=== PATIENT | female | born 1940 | race Caucasian/White ===

== ENCOUNTER → 2018-03-02 | Outpatient (CLI) | payer MEDICARE, MEDICAID ==
[2018-03-02 12:18] LABS: Urine Blood Negative /uL (Negative); Urine Specific Gravity 1.004 (1.001-1.035)
[2018-03-02 12:22] LABS: Basophils # (auto) 0.1 uL; Basophils % (auto) 0.8 % (0.0-2.0); Eosinophils # (auto) 0.8 uL; Eosinophils % (auto) 11.8 % (0.0-7.0); Hematocrit 33.2 % (36.0-46.0); Hemoglobin 10.5 g/dL (12.2-16.2); Lymphocytes # (auto) 2.2 uL; Lymphocytes % (auto) 31.4 % (10.0-50.0); Mean Corpuscular Hemoglobin 27.3 pg (28.0-32.0); Mean Corpuscular Hgb Conc. 31.5 g/dL (32.0-36.0); Mean Corpuscular Volume 86.5 fL (80.0-100.0); Monocytes # (auto) 0.4 uL; Monocytes % (auto) 6.1 % (0.0-12.0); Neutrophils # (auto) 3.4 uL; Neutrophils % (auto) 49.9 % (37.0-80.0); Nucleated Red Blood Cells % 0.1 %; Platelet Count (auto) 299 10^3/uL (140-450); Red Blood Cells 3.83 10^6/uL (4.0-5.20); Red Cell Distribution Width 16.8 % (11.8-14.3); White Blood Cell 6.9 10^3/uL (4.4-10.8)
[2018-03-02 12:50] LABS: Alanine Aminotransferase 21 U/L (13-56); Albumin 3.7 g/dL (3.4-5.0); Alkaline Phosphatase 148 U/L (45-117); Anion Gap 11 (5-15); Aspartate Aminotransferase 26 U/L (15-37); BUN/Creatinine Ratio 20.3; Bilirubin, Direct < 0.1 mg/dL (0-0.2); Bilirubin, Total 0.3 mg/dL (0.2-1.0); Blood Urea Nitrogen 26 mg/dL (7-18); Calcium 9.1 mg/dL (8.5-10.1); Carbon Dioxide 21 mmol/L (21-32); Chloride 109 mmol/L (98-107); Cholesterol 212 mg/dL (< 200); GFR African American 52 mL/min; GFR Non-African American 43 mL/min; Glucose 88 mg/dL (74-106); HDL Cholesterol 73 mg/dL (40-59); LDL Cholesterol 130 mg/dL (< 100); Potassium 3.9 mmol/L (3.5-5.1); Sodium 141 mmol/L (136-145); Total Protein 8.3 g/dL (6.4-8.2); Triglycerides 118 mg/dL (< 150)
== END | disposition home or self-care (01) ==
LOC: LAB 10:47
PROVIDERS: ATTEND Internal Medicine
DX: Z00.01 Encounter for general adult medical examination with abnormal findings (principal); E11.9 Type 2 diabetes mellitus without complications; E03.9 Hypothyroidism, unspecified; E55.9 Vitamin D deficiency, unspecified; K74.1 Hepatic sclerosis; N39.0 Urinary tract infection, site not specified
CPT/HCPCS: 36415; 80048; 80061; 80076; 81003; 82306; 83036; 84443; 85025; 87086

== ENCOUNTER → 2018-04-20 | Outpatient (CLI) | payer MEDICARE, MEDICAID ==
[2018-04-21 12:46] LABS: Basophils # (auto) 0.1 uL; Basophils % (auto) 0.9 % (0.0-2.0); Eosinophils # (auto) 0.8 uL; Eosinophils % (auto) 12.8 % (0.0-7.0); Hematocrit 37.6 % (36.0-46.0); Hemoglobin 12.2 g/dL (12.2-16.2); Lymphocytes # (auto) 1.9 uL; Lymphocytes % (auto) 30.7 % (10.0-50.0); Mean Corpuscular Hgb Conc. 32.5 g/dL (32.0-36.0); Mean Corpuscular Volume 89.2 fL (80.0-100.0); Monocytes # (auto) 0.3 uL; Monocytes % (auto) 4.5 % (0.0-12.0); Neutrophils # (auto) 3.2 uL; Neutrophils % (auto) 51.1 % (37.0-80.0); Nucleated Red Blood Cells % 0.1 %; Platelet Count (auto) 184 10^3/uL (140-450); Red Blood Cells 4.22 10^6/uL (4.0-5.20); Red Cell Distribution Width 18.9 % (11.8-14.3); White Blood Cell 6.3 10^3/uL (4.4-10.8)
[2018-04-21 17:28] LABS: Alkaline Phosphatase 129 U/L (45-117); Anion Gap 10 (5-15); Aspartate Aminotransferase 27 U/L (15-37); Blood Urea Nitrogen 25 mg/dL (7-18); Carbon Dioxide 22 mmol/L (21-32); Chloride 110 mmol/L (98-107); GFR African American 57 mL/min; GFR Non-African American 47 mL/min; Glucose 108 mg/dL (74-106); Potassium 3.9 mmol/L (3.5-5.1); Sodium 142 mmol/L (136-145)
[2018-04-21 17:29] LABS: Alanine Aminotransferase 25 U/L (13-56); Albumin 3.7 g/dL (3.4-5.0); Bilirubin, Total 0.2 mg/dL (0.2-1.0); Total Protein 8.3 g/dL (6.4-8.2)
== END | disposition home or self-care (01) ==
LOC: LAB 15:18
PROVIDERS: ATTEND Internal Medicine
DX: A23.9 Brucellosis, unspecified (principal); D64.9 Anemia, unspecified; I10 Essential (primary) hypertension
CPT/HCPCS: 36415; 80053; 85025

== ENCOUNTER → 2018-05-04 | Outpatient (CLI) | payer MEDICARE, MEDICAID ==
[2018-05-04 16:17] LABS: Urine Blood Negative /uL (Negative); Urine Specific Gravity 1.007 (1.001-1.035)
== END | disposition home or self-care (01) ==
LOC: LAB 12:01
PROVIDERS: ATTEND Internal Medicine
DX: N39.0 Urinary tract infection, site not specified (principal)
CPT/HCPCS: 81003; 87086

== ENCOUNTER 2018-05-21 12:53 | Emergency (ER) | payer MEDICARE, MEDICAID ==
[~2018-05-21] VITALS: Ht 154.9 cm; Wt 65.8 kg
[2018-05-21 14:10] VITALS: BP 170/82
[2018-05-21] MEDS ORDERED: KETOROLAC TROMETH 30 MG/ML 1ML VIAL IM ONE (16:00)
== END 2018-05-21 16:45 | disposition home or self-care (01) ==
LOC: ER 12:56
DX: N39.0 Urinary tract infection, site not specified (principal); M79.10 Myalgia, unspecified site; I10 Essential (primary) hypertension
CPT/HCPCS: 81002; 82962; 93005; 96372; 99283; J1885

== ENCOUNTER → 2018-06-29 | Outpatient (CLI) | payer MEDICARE, MEDICAID ==
[~2018-06-29] MED LIST: ALPR0.25 PO; ASPI-378 PO; ATOR20TA50 PO; DEXL60CA3 PO; ISOS5TAB PO; LISI-646 PO; MIRA25TA OR; NAPR375T27 PO; RANI-226 PO; TOPI100T68 PO
[2018-06-29 15:58] LABS: Urine Blood TRACE /uL (Negative); Urine Specific Gravity 1.009 (1.001-1.035)
== END | disposition home or self-care (01) ==
LOC: LABCORP 12:53
PROVIDERS: ATTEND Internal Medicine
DX: N39.0 Urinary tract infection, site not specified (principal)
CPT/HCPCS: 81003; 87086; 87088; 87186

== ENCOUNTER 2018-07-07 17:38 | Emergency (ER) | payer MEDICARE, MEDICAID ==
[~2018-07-07] VITALS: Ht 152.4 cm; Wt 52.2 kg
[2018-07-07] MEDS ORDERED: cloNIDine HCL 0.1 MG TAB ONE (18:15)
[2018-07-07] MEDS ORDERED: cloNIDine HCL 0.1 MG TAB PO ONE (18:15)
[2018-07-07 19:13] LABS: Urine Bacteria NONE SEEN /hpf (None Seen); Urine Blood Negative /uL (Negative); Urine Specific Gravity 1.005 (1.001-1.035); Urine WBC 305 /hpf (0 - 5); Urine WBC Clumps PRESENT /hpf (None Seen)
[2018-07-07 19:35] LABS: Basophils # (auto) 0 uL; Basophils % (auto) 0.6 % (0.0-2.0); Eosinophils # (auto) 0.5 uL; Hematocrit 35.7 % (36.0-46.0); Hemoglobin 11.5 g/dL (12.2-16.2); Lymphocytes # (auto) 2.2 uL; Lymphocytes % (auto) 38.4 % (10.0-50.0); Mean Corpuscular Hemoglobin 29.8 pg (28.0-32.0); Mean Corpuscular Hgb Conc. 32.1 g/dL (32.0-36.0); Mean Corpuscular Volume 92.7 fL (80.0-100.0); Monocytes # (auto) 0.4 uL; Monocytes % (auto) 6.2 % (0.0-12.0); Neutrophils # (auto) 2.6 uL; Neutrophils % (auto) 45.8 % (37.0-80.0); Platelet Count (auto) 222 10^3/uL (140-450); Red Blood Cells 3.85 10^6/uL (4.0-5.20); Red Cell Distribution Width 17.1 % (11.8-14.3); White Blood Cell 5.7 10^3/uL (4.4-10.8)
[2018-07-07 19:47] LABS: Albumin 3.6 g/dL (3.4-5.0); Anion Gap 6 (5-15); Blood Urea Nitrogen 20 mg/dL (7-18); Calcium 8.4 mg/dL (8.5-10.1); Carbon Dioxide 23 mmol/L (21-32); Chloride 107 mmol/L (98-107); Glucose 177 mg/dL (74-106); Potassium 3.7 mmol/L (3.5-5.1); Sodium 136 mmol/L (136-145)
[2018-07-07 19:53] LABS: Alanine Aminotransferase 18 U/L (13-56); Alkaline Phosphatase 116 U/L (45-117); Aspartate Aminotransferase 25 U/L (15-37); BUN/Creatinine Ratio 16.1; Bilirubin, Total 0.2 mg/dL (0.2-1.0); GFR African American 54 mL/min; GFR Non-African American 45 mL/min; Total Protein 7.6 g/dL (6.4-8.2)
[2018-07-07 20:13] LABS: INR 0.94 (0.9-1.15); Partial Thromboplastin Time 26.2 sec (23.78-33.04); Prothrombin Time 10.1 sec (9.27-12.13)
[2018-07-08 03:58] VITALS: BP 173/71
[2018-07-08] MEDS ORDERED: cefTRIAXone W LIDOCAINE 1 GM IM IM ONE (04:30)
[2018-07-08] MEDS ORDERED: cefTRIAXone SOD 1,000 MG VL ONE (05:21)
[2018-07-08] MEDS ORDERED: LEVOFLOXACIN 500 MG TAB ONE (05:24)
[2018-07-08] MEDS ORDERED: LEVOFLOXACIN 500 MG TAB PO ONE (05:30)
== END 2018-07-08 06:46 | disposition home or self-care (01) ==
LOC: ER 17:43
DX: I10 Essential (primary) hypertension (principal); N39.0 Urinary tract infection, site not specified; I25.10 Atherosclerotic heart disease of native coronary artery without angina pectoris; K21.9 Gastro-esophageal reflux disease without esophagitis; E78.5 Hyperlipidemia, unspecified; Z98.61 Coronary angioplasty status; Z79.82 Long term (current) use of aspirin; Z79.899 Other long term (current) drug therapy
CPT/HCPCS: 36415; 71046; 80053; 81001; 83735; 83880; 84443; 84484; 85025; 85379; 85610; 85730; 93005; 99284; J0696

== ENCOUNTER → 2018-09-21 | Outpatient (CLI) | payer MEDICARE, MEDICAID ==
[~2018-09-21] MED LIST changes: +KETOROLAC TROMETH 30 MG/ML 1ML VIAL IV ONE; +KETOROLAC TROMETH 60MG/2ML VIAL IM ONE; +MAGNESIUM SULFATE 1GM/100ML 100 ML IV ONE; +MVI in SODIUM CHLORIDE 0.9% 1,000 ML IVB ONE; +MVI in SODIUM CHLORIDE 0.9% 1,010 ML ONE; +ONDANSETRON HCL 4 MG/2 ML VIAL IV ONE; +ONDANSETRON HCL 4 MG/2 ML VIAL ONE; +cefTRIAXone 1GM/50ML D5W 50 ML IV ONE; +cefTRIAXone SOD 1,000 MG VL IM ONE
[2018-09-21 15:30] VITALS: BP 141/68
--- NOTE | 2018-09-21 15:30 | NUR ---
PRESENTED FROM DR LOPEZ WITH FATIGUE AND WEAKNESS, NAUSEA INTERFERING WITH ABILITY TO EAT. CLINIC PROVIDER WITH ORDERS RECEIVED. IV insertion IV access obtained, via clean sterile technique by inserting 22 gauge catheter at after attempt(s). IV secured properly. No trauma to site. Patient tolerated procedure well. ADMINISTERED MEDICATIONS PER ORDER AND TOLERATED WELL. REPORTED PAIN 8/10 TO BILATERAL LEGS WITH TORADOL 15 MG IVP ADMINISTERED WITH RELIEF DOWN TO 0/10. SON IN ATTENDANCE. VITALS AT 1245 BP 127/67 HR 63 Discharge Instructions See e-MAR for any mediations given with this visit. Patient education given on disease process. Patient verbalized understanding. Previous labs reviewed. Patient discharged in stable condition with after care instructions and follow up appointment FOR 09/22/18 AT 0900 MEDICATION ADMINISTRATION ROCEPHIN 1 GRAM IVPB AT 1150/STOP AT 1205 ZOFRAN 4 MG IVP AT 1205 0.9 NS 1000 ML WITH MVI AND MAGNESIUM 1 GRAM START AT 1210/STOP AT 1520 TORADOL 15 MG IVP AT 1250
== END | disposition home or self-care (01) ==
LOC: CHF HDHVI 11:37
PROVIDERS: ATTEND Internal Medicine Cardiovascular Disease
DX: E86.0 Dehydration (principal); R53.83 Other fatigue; J06.9 Acute upper respiratory infection, unspecified; I10 Essential (primary) hypertension; Z87.440 Personal history of urinary (tract) infections
CPT/HCPCS: 96365; 96366; 96368; 96375; G0463; J0696; J1885; J2405; J3411; J3475; 96367

== ENCOUNTER → 2018-09-22 | Outpatient (CLI) | payer MEDICARE, MEDICAID ==
[~2018-09-22] MED LIST changes: -KETOROLAC TROMETH 30 MG/ML 1ML VIAL IV ONE; -KETOROLAC TROMETH 60MG/2ML VIAL IM ONE; -MAGNESIUM SULFATE 1GM/100ML 100 ML IV ONE; +MULTIVITAMIN IV ONE; -MVI in SODIUM CHLORIDE 0.9% 1,000 ML IVB ONE; -ONDANSETRON HCL 4 MG/2 ML VIAL IV ONE; -ONDANSETRON HCL 4 MG/2 ML VIAL ONE; +SODIUM CHLORIDE IV ONE; -cefTRIAXone SOD 1,000 MG VL IM ONE; +cefTRIAXone SOD 1,000 MG VL ONE
[2018-09-22 10:30] VITALS: BP 130/82
--- NOTE | 2018-09-22 10:30 | NUR ---
IV insertion IV access obtained, via clean sterile technique by inserting 22 gauge catheter at LAC after 1 attempt(s). IV secured properly. No trauma to site. Patient tolerated procedure well.
--- NOTE | 2018-09-22 12:00 | NUR ---
IV INFUSING WITHOUT INCIDENT. PT AWAKE AND ALERT AND READING A MAGAZINE. REPORTS NOT FEELING BETTER BUT OVERALL APPEARANCE IS MORE ALERT AND COLOR PINK, SKIN WARM AND DRY. PT OFFERED ENSURE AND DRANK SHAKE .
[2018-09-22 12:21] LABS: Basophils # (auto) 0 uL; Basophils % (auto) 0.4 % (0.0-2.0); Eosinophils # (auto) 0.5 uL; Eosinophils % (auto) 10.4 % (0.0-7.0); Hematocrit 38.2 % (36.0-46.0); Hemoglobin 12.4 g/dL (12.2-16.2); Lymphocytes # (auto) 2.5 uL; Lymphocytes % (auto) 53.1 % (10.0-50.0); Mean Corpuscular Hemoglobin 30.7 pg (28.0-32.0); Mean Corpuscular Hgb Conc. 32.5 g/dL (32.0-36.0); Mean Corpuscular Volume 94.3 fL (80.0-100.0); Monocytes # (auto) 0.4 uL; Monocytes % (auto) 8.3 % (0.0-12.0); Neutrophils # (auto) 1.3 uL; Neutrophils % (auto) 27.8 % (37.0-80.0); Nucleated Red Blood Cells % 0.2 %; Platelet Count (auto) 159 10^3/uL (140-450); Red Blood Cells 4.05 10^6/uL (4.0-5.20); Red Cell Distribution Width 15.5 % (11.8-14.3); White Blood Cell 4.8 10^3/uL (4.4-10.8)
[2018-09-22 12:27] LABS: Potassium 3.3 mmol/L (3.5-5.1)
[2018-09-22 12:37] LABS: Albumin 3.3 g/dL (3.4-5.0); BUN/Creatinine Ratio 18.1; Bilirubin, Total 0.2 mg/dL (0.2-1.0); Calcium 8.6 mg/dL (8.5-10.1); Magnesium 2.4 mg/dL (1.6-2.6); Total Protein 7.6 g/dL (6.4-8.2)
--- NOTE | 2018-09-22 13:00 | NUR ---
CONTINUES TO SIT IN RECLINER AND VS WNL. SEE FREQUENT VS. IV FLUIDS ONGOING TO LEFT AC.
[2018-09-22 14:15] VITALS: BP 165/79
--- NOTE | 2018-09-22 14:15 | NUR ---
IV SITE DCD. LEFT AC SITE BENIGN POST ROVAL. PT ASSISTED UP TO RESTROOM TO VOID. GAIT STEADY WITH ONE PERSON STAND BY. AFFECT FLAT BUT COOPERATIVE. Discharge Instructions See e-MAR for any mediations given with this visit. Patient education given on disease process. Patient verbalized understanding. Previous labs reviewed. Patient discharged in stable condition with after care instructions and follow up appointment FOR 09/25/18
--- NOTE | 2018-11-29 12:19 | NUR ---
LATE ENTRY FOR 09/22/18 MVI IN NS [id number] LIA [id number]
== END | disposition home or self-care (01) ==
LOC: CHF HDHVI 09:23
PROVIDERS: ATTEND Internal Medicine Cardiovascular Disease
DX: E83.40 Disorders of magnesium metabolism, unspecified (principal); D64.9 Anemia, unspecified; E86.0 Dehydration; J20.9 Acute bronchitis, unspecified; I10 Essential (primary) hypertension
CPT/HCPCS: 36415; 80053; 82306; 83735; 85025; 96365; 96366; 96368; G0463; J0696; J3411; J3475; 96367

== ENCOUNTER → 2018-11-06 | Outpatient (CLI) | payer MEDICARE, MEDICAID ==
[~2018-11-06] MED LIST changes: -MULTIVITAMIN IV ONE; -MVI in SODIUM CHLORIDE 0.9% 1,010 ML ONE; -SODIUM CHLORIDE IV ONE; -cefTRIAXone 1GM/50ML D5W 50 ML IV ONE; -cefTRIAXone SOD 1,000 MG VL ONE
[2018-11-06 12:15] LABS: Urine Blood Negative /uL (Negative); Urine Specific Gravity 1.004 (1.001-1.035)
[2018-11-06 12:26] LABS: Potassium 3.6 mmol/L (3.5-5.1)
[2018-11-06 12:32] LABS: Calcium 9.4 mg/dL (8.5-10.1)
[2018-11-06 12:34] LABS: Basophils # (auto) 0 uL; Basophils % (auto) 0.7 % (0.0-2.0); Eosinophils # (auto) 0.7 uL; Eosinophils % (auto) 12.7 % (0.0-7.0); Hematocrit 39.6 % (36.0-46.0); Hemoglobin 12.7 g/dL (12.2-16.2); Lymphocytes # (auto) 2.4 uL; Lymphocytes % (auto) 41.6 % (10.0-50.0); Mean Corpuscular Hemoglobin 30.6 pg (28.0-32.0); Mean Corpuscular Volume 95.6 fL (80.0-100.0); Monocytes # (auto) 0.4 uL; Monocytes % (auto) 7.5 % (0.0-12.0); Neutrophils # (auto) 2.2 uL; Neutrophils % (auto) 37.5 % (37.0-80.0); Nucleated Red Blood Cells % 0.1 %; Platelet Count (auto) 196 10^3/uL (140-450); Red Blood Cells 4.14 10^6/uL (4.0-5.20); Red Cell Distribution Width 16.4 % (11.8-14.3); White Blood Cell 5.7 10^3/uL (4.4-10.8)
[2018-11-06 12:35] LABS: BUN/Creatinine Ratio 14.4
[2018-11-06 12:41] LABS: INR 0.9 (0.9-1.15); Partial Thromboplastin Time 25.7 sec (23.78-33.04); Prothrombin Time 9.7 sec (9.27-12.13)
== END | disposition home or self-care (01) ==
LOC: LAB 10:22
PROVIDERS: ATTEND Internal Medicine
DX: Z01.812 Encounter for preprocedural laboratory examination (principal); D64.9 Anemia, unspecified; R79.1 Abnormal coagulation profile; I10 Essential (primary) hypertension; N39.0 Urinary tract infection, site not specified
CPT/HCPCS: 36415; 80048; 81003; 85025; 85610; 85730

== ENCOUNTER → 2018-11-28 | Outpatient (CLI) | payer MEDICARE, MEDICAID ==
[2018-11-28 16:17] LABS: Urine Blood Negative /uL (Negative)
== END | disposition home or self-care (01) ==
LOC: LAB 12:35
PROVIDERS: ATTEND Internal Medicine Cardiovascular Disease
DX: D72.829 Elevated white blood cell count, unspecified (principal)
CPT/HCPCS: 81003

== ENCOUNTER → 2018-12-08 | Outpatient (CLI) | payer MEDICARE, MEDICAID ==
[2018-12-08 11:32] LABS: Urine Blood Negative /uL (Negative); Urine Specific Gravity 1.013 (1.001-1.035)
== END | disposition home or self-care (01) ==
LOC: LAB 10:14
PROVIDERS: ATTEND Internal Medicine
DX: N39.0 Urinary tract infection, site not specified (principal)
CPT/HCPCS: 81003

== ENCOUNTER → 2018-12-15 | Outpatient (CLI) | payer MEDICARE, MEDICAID ==
[2018-12-15 15:50] LABS: Urine Blood Negative /uL (Negative); Urine Specific Gravity 1.006 (1.001-1.035)
== END | disposition home or self-care (01) ==
LOC: LAB 11:27
PROVIDERS: ATTEND Internal Medicine Cardiovascular Disease
DX: N39.0 Urinary tract infection, site not specified (principal)
CPT/HCPCS: 81003; 87086

== ENCOUNTER → 2019-02-16 | Outpatient (CLI) | payer MEDICARE, MEDICAID ==
[2019-02-16 16:07] LABS: BUN/Creatinine Ratio 19.7; Calcium 9.3 mg/dL (8.5-10.1); Magnesium 2.5 mg/dL (1.6-2.6); Potassium 4.2 mmol/L (3.5-5.1)
== END | disposition home or self-care (01) ==
LOC: LAB 11:33
PROVIDERS: ATTEND Internal Medicine Cardiovascular Disease
DX: E03.9 Hypothyroidism, unspecified (principal); E83.40 Disorders of magnesium metabolism, unspecified; I10 Essential (primary) hypertension
CPT/HCPCS: 36415; 80048; 83735; 84439; 84443

== ENCOUNTER → 2019-08-23 | Outpatient (CLI) | payer MEDICARE, MEDICAID ==
[2019-08-23 15:59] LABS: Basophils # (auto) 0 uL; Basophils % (auto) 0.5 % (0.0-2.0); Eosinophils # (auto) 0.5 uL; Eosinophils % (auto) 6.9 % (0.0-7.0); Hematocrit 38.3 % (36.0-46.0); Hemoglobin 12.5 g/dL (12.2-16.2); Lymphocytes # (auto) 2.5 uL; Lymphocytes % (auto) 33.8 % (10.0-50.0); Mean Corpuscular Hemoglobin 31.1 pg (28.0-32.0); Mean Corpuscular Hgb Conc. 32.6 g/dL (32.0-36.0); Mean Corpuscular Volume 95.6 fL (80.0-100.0); Monocytes # (auto) 0.5 uL; Monocytes % (auto) 7.1 % (0.0-12.0); Neutrophils # (auto) 3.8 uL; Neutrophils % (auto) 51.7 % (37.0-80.0); Nucleated Red Blood Cells % 0.1 %; Platelet Count (auto) 198 10^3/uL (140-450); Red Blood Cells 4.01 10^6/uL (4.0-5.20); Red Cell Distribution Width 14.5 % (11.8-14.3); Urine Blood Negative /uL (Negative); Urine Specific Gravity 1.014 (1.001-1.035); White Blood Cell 7.3 10^3/uL (4.4-10.8)
[2019-08-23 16:10] LABS: Albumin 3.8 g/dL (3.4-5.0); Calcium 9.4 mg/dL (8.5-10.1); Potassium 3.6 mmol/L (3.5-5.1)
[2019-08-23 16:12] LABS: BUN/Creatinine Ratio 15.5; Bilirubin, Total 0.4 mg/dL (0.2-1.0); Total Protein 8.2 g/dL (6.4-8.2)
== END | disposition home or self-care (01) ==
LOC: LAB 12:50
PROVIDERS: ATTEND Internal Medicine
DX: D64.9 Anemia, unspecified (principal); N39.0 Urinary tract infection, site not specified
CPT/HCPCS: 36415; 80053; 81003; 85025; 87086

== ENCOUNTER → 2019-09-07 | Outpatient (CLI) | payer MEDICARE, MEDICAID ==
[~2019-09-07] MED LIST changes: -ALPR0.25 PO; -ASPI-378 PO; -DEXL60CA3 PO; +DICL-176 PO; +DICL50TA4 PO; +ESOM20CA PO; +GABA300C10 PO; -ISOS5TAB PO; -LISI-646 PO; +LISI40TA PO; +LUBI24CA6 PO; +MELO1TAB73 PO; +METO-169 PO; -MIRA25TA OR; -NAPR375T27 PO; +OMEP20TA PO; -RANI-226 PO
== END | disposition home or self-care (01) ==
LOC: Rad HDHVI 10:26
PROVIDERS: ATTEND Internal Medicine
DX: I70.0 Atherosclerosis of aorta (principal); J98.11 Atelectasis; R07.81 Pleurodynia; R42 Dizziness and giddiness; R11.0 Nausea
CPT/HCPCS: 71101

== ENCOUNTER → 2019-09-20 | Outpatient (CLI) | payer MEDICARE, MEDICAID ==
[~2019-09-20] MED LIST changes: +cefTRIAXone 1GM/50ML D5W 50 ML IV ONE
[2019-09-20 11:15] VITALS: BP 150/90
--- NOTE | 2019-09-20 11:15 | NUR ---
CHF PT WAS ESCORTED TO THE CHF CLINIC FROM MD OFFICE WITH ORDERS FOR IV ANTIBIOTIC FOR UTI. PT ARRIVED WITH IV IN PLACE AT THE [facility] PT STATES IT WAS INSERTED AT URGENT CARE 1 DAY PRIOR TO VISIT. IV SITE BENIGN AND FLUSHED EASILY. A/OX4 VSS.
[2019-09-20 12:10] VITALS: BP 160/80
--- NOTE | 2019-09-20 12:10 | NUR ---
Discharge Instructions See e-MAR for any mediations given with this visit. Patient education given on disease process. Patient verbalized understanding. Patient discharged in stable condition with after care instructions and follow up appointment. WILL RETURN TOMORROW FOR MD VISIT AND CT WITH CONTRAST. SWAB CAP WAS PLACED ON IV PORT AND IV WAS SECURE WITH COBAN. NOTE LIA [id number] ADMIN BY FELISA BROWNING Addendum: 09/20/19 at 1341 by FELISA LAWSON RN RN CT PT ADVISED TO KEEP IV SITE DRY. PT VERBALIZED UNDERSTANDING
== END | disposition home or self-care (01) ==
LOC: LAB 10:58
PROVIDERS: ATTEND Internal Medicine
DX: N39.0 Urinary tract infection, site not specified (principal); R94.4 Abnormal results of kidney function studies; I25.10 Atherosclerotic heart disease of native coronary artery without angina pectoris; F41.9 Anxiety disorder, unspecified; J44.9 Chronic obstructive pulmonary disease, unspecified; E78.5 Hyperlipidemia, unspecified; K21.9 Gastro-esophageal reflux disease without esophagitis; I10 Essential (primary) hypertension; Z79.82 Long term (current) use of aspirin
CPT/HCPCS: 36415; 82565; 96365; G0463; J0696

== ENCOUNTER → 2019-09-21 | Outpatient (CLI) | payer MEDICARE, MEDICAID ==
[~2019-09-21] MED LIST changes: +IOHEXOL 350 MG/ML 100ML IJ ONE; +READI-CAT 2 (BARIUM SULF)(VANILLA SMOOTHIE) 450ML ONE
[2019-09-21 09:20] VITALS: BP 179/100
--- NOTE | 2019-09-21 09:20 | NUR ---
CHF PT AT THE [facility] FOR TX AND CT ABDOMEN PELVIS WITH IV AND ORAL CONTRAST. A/O X 4 C/O ABDOMINAL PAIN MD ORTIZ AWARE LIDODERM PATCH SUGGESTED FOR PT TO HIDE SPREADER. SON VERBALIZED UNDERSTANDING Addendum: 09/21/19 at 1506 by HILLARY MCKINNEY RN CA PT PRESENTED WITH IV FROM THE VISIT TO URGENT CARE, IV PATENT SITE BENIGN
--- NOTE | 2019-09-21 11:00 | NUR ---
CT PT ASSISTED TO AND FROM CT USING WALKER 0 DISTRESS TOLERATED PROCEDURE WELL.
[2019-09-21 11:18] VITALS: BP 184/101
--- NOTE | 2019-09-21 11:18 | NUR ---
Discharge Instructions See e-MAR for any mediations given with this visit. Patient education given on disease process. Patient verbalized understanding. Previous labs reviewed. Patient discharged in stable condition with after care instructions and follow up appointment. MEDICATIONS ROCEPHIN IV [id number]
== END | disposition home or self-care (01) ==
LOC: Rad HDHVI 09:10
PROVIDERS: ATTEND Internal Medicine
DX: K57.30 Diverticulosis of large intestine without perforation or abscess without bleeding (principal); R10.9 Unspecified abdominal pain; I25.10 Atherosclerotic heart disease of native coronary artery without angina pectoris; K44.9 Diaphragmatic hernia without obstruction or gangrene; F41.9 Anxiety disorder, unspecified; J44.9 Chronic obstructive pulmonary disease, unspecified; I10 Essential (primary) hypertension; K21.9 Gastro-esophageal reflux disease without esophagitis; E78.5 Hyperlipidemia, unspecified; Z79.82 Long term (current) use of aspirin
CPT/HCPCS: 74178; 96365; G0463; J0696; Q9967

== ENCOUNTER → 2019-09-25 | Outpatient (CLI) | payer MEDICARE, MEDICAID ==
[~2019-09-25] MED LIST changes: -IOHEXOL 350 MG/ML 100ML IJ ONE; -READI-CAT 2 (BARIUM SULF)(VANILLA SMOOTHIE) 450ML ONE; -cefTRIAXone 1GM/50ML D5W 50 ML IV ONE
[2019-09-25 11:50] LABS: Urine Blood Negative /uL (Negative); Urine Specific Gravity 1.008 (1.001-1.035)
== END | disposition home or self-care (01) ==
LOC: LAB 10:41
PROVIDERS: ATTEND Internal Medicine
DX: N39.0 Urinary tract infection, site not specified (principal)
CPT/HCPCS: 81003

== ENCOUNTER → 2019-10-17 | Outpatient (CLI) | payer MEDICARE, MEDICAID ==
[~2019-10-17] VITALS: Ht 157.5 cm; Wt 52.2 kg
[~2019-10-17] MED LIST changes: +ADENOSINE 44 MG in GIVE UN-DILUTED 0 ML IV ONE; +ADENOSINE 90 MG/30 ML INJ IV ONE; +ALPR0.254 PO; +ASPI81CH59 PO; +BUSP5TAB51 PO; +CIPR500T4 PO; +CLON0.1T PO; -LISI40TA PO; +LISI40TA11 PO; +METO10TA3 PO; +ONDA-144 PO; +SUCR1TAB22 PO; +TRIA75TA55 PO
== END | disposition home or self-care (01) ==
LOC: Rad HDHVI 13:15
PROVIDERS: ATTEND Internal Medicine Cardiovascular Disease
DX: I10 Essential (primary) hypertension (principal); E78.00 Pure hypercholesterolemia, unspecified; R07.9 Chest pain, unspecified; R00.2 Palpitations
CPT/HCPCS: 78452; 93005; 93306; 96374; 96375; A9500; J0153

== ENCOUNTER → 2019-12-25 | Outpatient (CLI) | payer MEDICARE, MEDICAID ==
[~2019-12-25] MED LIST changes: -ADENOSINE 44 MG in GIVE UN-DILUTED 0 ML IV ONE; -ADENOSINE 90 MG/30 ML INJ IV ONE; -ALPR0.254 PO; -ASPI81CH59 PO; -BUSP5TAB51 PO; -CIPR500T4 PO; -CLON0.1T PO; +LISI40TA PO; -LISI40TA11 PO; -METO10TA3 PO; -ONDA-144 PO; +ONDANSETRON HCL 4 MG/2 ML VIAL IV ONE; +ONDANSETRON HCL 4 MG/2 ML VIAL ONE; +SODIUM CHLORIDE 0.9% 500 ML IV ONE; -SUCR1TAB22 PO; -TRIA75TA55 PO
[2019-12-25 11:45] VITALS: BP 128/52
[2019-12-25 13:58] VITALS: BP 140/58
== END | disposition home or self-care (01) ==
LOC: CHF HDHVI 11:45
PROVIDERS: ATTEND Internal Medicine
DX: E86.0 Dehydration (principal); R11.2 Nausea with vomiting, unspecified; I10 Essential (primary) hypertension; E78.00 Pure hypercholesterolemia, unspecified
CPT/HCPCS: 96361; 96374; G0463; J2405; J7040; 96367

== ENCOUNTER 2020-01-09 13:18 | Inpatient (IN) | payer MEDICARE, MEDICAID ==
[~2020-01-09] VITALS: Ht 152.4 cm; Wt 56.1 kg
[~2020-01-09 13:18] MED LIST changes: -LISI40TA PO; +LISI40TA11 PO; -ONDANSETRON HCL 4 MG/2 ML VIAL IV ONE; -ONDANSETRON HCL 4 MG/2 ML VIAL ONE; -SODIUM CHLORIDE 0.9% 500 ML IV ONE
[2020-01-09 14:07] LABS: Basophils # (auto) 0 10 ^3/uL (0-0.2); Basophils % (auto) 0.7 % (0.0-2.0); Eosinophils # (auto) 0.1 10 ^3/uL (0-0.8); Eosinophils % (auto) 1.5 % (0.0-7.0); Lymphocytes % (auto) 30.7 % (10.0-50.0); Mean Corpuscular Hgb Conc. 33.2 g/dL (32.0-36.0); Mean Corpuscular Volume 90.4 fL (80.0-100.0); Monocytes # (auto) 0.5 10 ^3/uL (0-1.3); Monocytes % (auto) 7.4 % (0.0-12.0); Neutrophils % (auto) 59.7 % (37.0-80.0); Platelet Count (auto) 232 10^3/uL (140-450); Red Blood Cells 3.99 10^6/uL (4.0-5.20); Red Cell Distribution Width 14.7 % (11.8-14.3); White Blood Cell 6.6 10^3/uL (4.4-10.8)
[2020-01-09 14:27] LABS: Albumin 3.6 g/dL (3.4-5.0); Magnesium 2.2 mg/dL (1.6-2.6)
[2020-01-09 14:30] LABS: BUN/Creatinine Ratio 11.8; Bilirubin, Total 0.4 mg/dL (0.2-1.0); Total Protein 7.5 g/dL (6.4-8.2)
[2020-01-09 15:14] LABS: Urine Bacteria FEW /hpf (None Seen); Urine Blood Negative /uL (Negative); Urine Hyaline Cast FEW /lpf (0 - 2); Urine Specific Gravity 1.009 (1.001-1.035); Urine WBC 245 /hpf (0 - 5)
[2020-01-09] MEDS ORDERED: SODIUM CHLORIDE 0.9% 1,000 ML IVB ONE (15:49)
[2020-01-09] MEDS ORDERED: ONDANSETRON HCL 4 MG/2 ML VIAL IV ONE (16:00)
[2020-01-09 16:19] LABS: INR 1.02 (0.9-1.15); Partial Thromboplastin Time 27.3 sec (23.64-32.05)
[2020-01-09] MEDS ORDERED: POTASSIUM EFFERVESENT TAB 25 MEQ PO ONE (19:30)
[2020-01-09] MEDS ORDERED: cefTRIAXone 1GM/50ML D5W 50 ML IV ONE (19:30)
[2020-01-09 20:10] LABS: Urine Bacteria FEW /hpf (None Seen); Urine Blood Negative /uL (Negative); Urine Specific Gravity 1.005 (1.001-1.035); Urine WBC 33 /hpf (0 - 5)
[2020-01-09] MEDS ORDERED: ACETAMINOPHEN 325 MG TAB PO ONE (20:15)
[2020-01-09 21:29] LABS: BUN/Creatinine Ratio 10.5; Calcium 8.2 mg/dL (8.5-10.1); Potassium 3.1 mmol/L (3.5-5.1)
[2020-01-09] MEDS ORDERED: SODIUM CHL 3% 250 ML IV ONE (22:15)
[2020-01-09] MEDS ORDERED: NITROGLYCERIN 0.4 MG SL TAB SL PRN (22:15)
[2020-01-09] MEDS ORDERED: MORPHINE SULF INJ 2 MG/ML SYRINGE 1ML IV PRN (22:15)
[2020-01-09] MEDS ORDERED: PANTOPRAZOLE 40 MG TAB PO ONE (22:30)
[2020-01-09] MEDS: POTASSIUM CHL 20MEQ/100ML 100 ML IV SCH (22:49)
[2020-01-09] MEDS ORDERED: GABAPENTIN 300 MG CAP PO ONE (23:00)
--- NOTE | 2020-01-09 23:30 | NUR ---
Telemetry admit from ER VERNA JUAREZ admitted to Telemetry unit. DID NOT RECEIVE SBAR FROM ER NURSE. Patient oriented to Jacob sanderson RN, [facility] unit, 278 room, B bed, and unit policies regarding patient care and visiting hours. Patient now on continuous telemetry monitoring, tele box # 59 and telemetry reading on arrival to unit is SINUS RHYTHM to SINUS BRADYCARDIA. Patient placed on bedside oxygen, weighed by bedscale and encouraged to call if they need something. All questions and concerns addressed, patient verbalized understanding. Note:
[2020-01-10] VITALS (8 sets, daily range): BP systolic 122–180; BP diastolic 66–90
[2020-01-10] MEDS ORDERED: ASPI81CH59 PO (00:04)
[2020-01-10] MEDS ORDERED: CLON0.1T PO (00:04)
[2020-01-10] MEDS ORDERED: ALPR0.254 PO (00:04)
[2020-01-10] MEDS ORDERED: ONDA-144 PO (00:04)
--- NOTE | 2020-01-10 00:40 | NUR ---
Communicated with Dr Jerome and notified him of patient requesting pain medication for arthritis. Dr Jerome provided new order: Hazard 10/325 mg po prn QID. read back and confirmed order. will carry out .
[2020-01-10] MEDS: POTASSIUM CHL 20MEQ/100ML 100 ML IV SCH ×2 (00:45→02:45)
[2020-01-10] MEDS: HYDROcodone-ACET 10/325MG TAB PO PRN ×2 (00:51→09:18)
[2020-01-10 07:17] LABS: Potassium 4.1 mmol/L (3.5-5.1)
[2020-01-10 07:28] LABS: Calcium 8.4 mg/dL (8.5-10.1)
--- NOTE | 2020-01-10 07:30 | NUR ---
OPENING SHIFT NOTE ASSUMED CARE OF PATIENT. PT AWAKE AND ALERT. RESPIRATIONS NORMAL AND NONLABORED. NO S/S DISTRESS. BED IN LOWEST POSITION WITH CALL LIGHT IN REACH. EDUCATED PT TO CALL FOR ASSISTANCE IF NEEDED. PT VERBALIZED UNDERSTANDING. Signed: 01/10/20 at 926 by Paola BLUE <Co-Signature Required> Co-Signed: 01/10/20 at 926 by Lisa Bower RN
[2020-01-10] MEDS: ATORVASTATIN 20 MG TAB PO SCH (09:15)
[2020-01-10] MEDS: PANTOPRAZOLE 40 MG TAB PO SCH (09:16)
[2020-01-10] MEDS: TOPIRAMATE 100 MG TAB PO SCH (09:16)
[2020-01-10] MEDS: GABAPENTIN 300 MG CAP PO SCH ×2 (09:16→22:20)
[2020-01-10] MEDS: LISINOPRIL 20 MG TAB PO SCH (09:17)
[2020-01-10] MEDS: Meloxicam 7.5 MG TAB PO SCH ×2 (09:22→22:00)
--- NOTE | 2020-01-10 09:29 | NUR ---
RE: orders Contacted Dr. Jerome to notify of UA results with patient's c/o urgency & oliguria and patient's c/o nausea. MD verbalized understanding. Orders received and read back to verify.
[2020-01-10] MEDS: levoFLOXacin 500MG 100 ML IV SCH ×2 (11:16→11:20)
[2020-01-10] MEDS: ONDANSETRON HCL 4 MG/2 ML VIAL IV PRN ×3 (11:17→22:20)
--- NOTE | 2020-01-10 12:33 | NUR ---
IV removed/attempted new IV IV to the RFA removed with aseptic technique, catheter intact. Dressing applied. Patient tolerated well, no trauma to site. Paola, student RN, and this RN attempted to obtain IV access. All attempts failed. Patient requested to not have IV access and have antibiotic changed to PO. Message provided to Dr. Jerome.
--- NOTE | 2020-01-10 13:43 | NUR ---
Spoke with Dr. Jerome RE: POC Notified MD of patient's recent lab results. MD verbalized understanding. Orders received and read back to verify.
--- NOTE | 2020-01-10 13:53 | NUR ---
at bedside - Dr. Jerome
--- NOTE | 2020-01-10 14:00 | NUR ---
RE: Elevated BP LUIS Ivey, notified this RN and Paola, nursing home manager, of elevated BP. BP reassessed by RN. Documented BP at 1400 by Loni was original BP that RN was notified of. Documented BP by Paola was reassessment BP.
[2020-01-10] MEDS ORDERED: levoFLOXacin 500 MG TAB PO ONE (15:00)
--- NOTE | 2020-01-10 15:58 | NUR ---
C/O N/V Patient has c/o N/V. Bed linens changed d/t emesis. Patient cleansed and repositioned for comfort. Patient requesting discharge to be held due to N/V. Message left for Dr. Jerome to inform MD. Addendum: 01/10/20 at 1603 by Lisa Bower RN MD verbalized understanding. Discharge to be cancelled per MD order.
--- NOTE | 2020-01-10 16:59 | NUR ---
IV started 22g IV started to the right upper arm with aseptic technique by mamta Burt RN. IV secured and IV education provided to the patient. Patient verbalized understanding. Bed returned to lowest locked position with call light within reach.
--- NOTE | 2020-01-10 19:20 | NUR ---
Care endorsed to NALLELY Kearney. Patient resting in bed with even and unlabored respirations, no distress noted. Fall precautions in place with call light within reach; bed alarm on for safety.
--- NOTE | 2020-01-10 19:25 | NUR ---
Opening Shift Note Assumed care of patient, awake and alert. No S/S of distress/SOB or pain. Instructed on POC and to call for assist PRN, will continue to monitor for changes Q1hr and PRN. Bedside commode at bedside. Safety precautions maintained bed is in lowest position and locked, bed rails x2, bed alarm on. Call light and bedside table are within reach.
[2020-01-11 05:03] VITALS: BP 128/75
--- NOTE | 2020-01-11 07:22 | NUR ---
End of Shift Note Endorsed care to dayshift RN. At this time patient has no s/s of distress or SOB, no complaints. Patient responsive to name and touch.
--- NOTE | 2020-01-11 08:00 | NUR ---
Morning note Patient resting in bed with even and unlabored respirations, no distress noted. Instructed patient on POC, fall precautions and to call for assistance as needed. Patient verbalized understanding. Fall precautions in place with call light within reach; bed alarm on for safety.
[2020-01-11 09:00] VITALS: BP 155/83
[2020-01-11] MEDS: ONDANSETRON HCL 4 MG/2 ML VIAL IV PRN (09:06)
[2020-01-11] MEDS: ATORVASTATIN 20 MG TAB PO SCH (09:09)
[2020-01-11] MEDS: GABAPENTIN 300 MG CAP PO SCH (09:09)
[2020-01-11] MEDS: PANTOPRAZOLE 40 MG TAB PO SCH (09:09)
[2020-01-11] MEDS: HYDROcodone-ACET 10/325MG TAB PO PRN (09:09)
[2020-01-11] MEDS: TOPIRAMATE 100 MG TAB PO SCH (09:10)
[2020-01-11] MEDS: Meloxicam 7.5 MG TAB PO SCH (09:10)
[2020-01-11] MEDS: LISINOPRIL 20 MG TAB PO SCH (09:11)
--- NOTE | 2020-01-11 09:30 | NUR ---
Bed alarm alarming Patient found in the restroom. Patient stated "I had to go poopie!" Fall prevention education provided to the patient and instructed patient to only ambulate with a staff member for standby assistance. Patient verbalized understanding. Patient returned to bed with no complications; standby assistance provided by staff member. Bed alarm on for safety; call light within reach.
[2020-01-11] MEDS ORDERED: levoFLOXacin 500 MG TAB PO SCH (10:00)
[2020-01-11] MEDS ORDERED: levoFLOXacin 250 MG TAB PO SCH (10:00)
--- NOTE | 2020-01-11 10:26 | NUR ---
Patient ambulated with physical therapist ROBINA Lambert, assisted patient with ambulation around nursing unit. FWW used as assistive device. Patient returned to bed with no complications. Bed alarm on for safety.
[2020-01-11 13:00] VITALS: BP 146/56
--- NOTE | 2020-01-11 13:13 | NUR ---
Patient resting in bed with even and unlabored respirations, no distress noted. Fall precautions in place with call light within reach; bed alarm on for safety.
--- NOTE | 2020-01-11 15:36 | NUR ---
Prescription called into patient's preferred pharmacy per MD order.
--- NOTE | 2020-01-11 17:11 | NUR ---
Discharge Discharge education and paperwork provided to the patient per MD order. patient verbalized understanding. IV removed with clean technique, catheter intact. Dressing applied, patient tolerated well. Telemonitor removed and returned. Patient reports having all personal belongings. Respirations even and unlabored, no distress noted. Informed patient discharge prescription called into preferred pharmacy. Patient verbalized understanding. Called patient's next of kin, Artemio, updated on discharge status and instructed to come to hospital to transport patient. Artemio verbalized understanding. ETA 15-20 minutes.
--- NOTE | 2020-01-11 17:40 | NUR ---
Patient taken to hospital lobby via wheelchair accompanied by staff member. Respirations even and unlabored, no distress noted. Patient reports having all personal belongings. Patient's son, Artemio, transporting patient.
== END 2020-01-11 17:42 | disposition home or self-care (01) | DRG 392 ==
LOC: EDBD 13:18 → ER 13:18 → EDUNIT# 13:18 → TELE 13:19 → TELE-WESTW 23:21
PROVIDERS: ADMIT Internal Medicine Cardiovascular Disease; ATTEND Internal Medicine Cardiovascular Disease
DX: K58.9 Irritable bowel syndrome, unspecified (principal); E87.1 Hypo-osmolality and hyponatremia; E87.6 Hypokalemia; E86.1 Hypovolemia; I25.10 Atherosclerotic heart disease of native coronary artery without angina pectoris; Z85.3 Personal history of malignant neoplasm of breast; Z90.49 Acquired absence of other specified parts of digestive tract; I12.9 Hypertensive chronic kidney disease with stage 1 through stage 4 chronic kidney disease, or unspecified chronic kidney disease; N18.3 Chronic kidney disease, stage 3 (moderate)
CPT/HCPCS: 36415; 71045; 74176; 80048; 80053; 81001; 83690; 83735; 85025; 85610; 85730; 87081; 93005; 96361; 96365; 96375; G0378; J0696; J1956; J2405; J3480

== ENCOUNTER → 2020-01-31 | Outpatient (CLI) | payer MEDICARE, MEDICAID ==
[~2020-01-31] MED LIST changes: +ALPR0.254 PO; +ASPI81CH59 PO; +BUSP5TAB51 PO; +CIPR500T4 PO; +CLON0.1T PO; -DICL-176 PO; -DICL50TA4 PO; +METO10TA3 PO; +ONDA-144 PO; +ONDANSETRON HCL 4 MG/2 ML VIAL IV ONE; +ONDANSETRON HCL 4 MG/2 ML VIAL ONE; +SODIUM CHLORIDE 0.9% 500 ML IV ONE; +SUCR1TAB22 PO; +TRIA75TA55 PO; +cefTRIAXone 1GM/50ML D5W 50 ML IV ONE; +cefTRIAXone SOD 1,000 MG VL ONE
[2020-01-31 10:20] VITALS: BP 138/80
--- NOTE | 2020-01-31 10:20 | NUR ---
CLINIC PT ARRIVED TO THE CHF CLINIC FROM BACK OFFICE WITH MD ORDERS. A/0X3, AMBULATORY WITH WALKER, ASSISTED BY SON. PT HAS C/O WEAKNESS. BREATHING IS EVEN AND UNLABORED.
--- NOTE | 2020-01-31 10:55 | NUR ---
IV insertion IV access obtained, via clean sterile technique by inserting 22 gauge catheter at RAC after 3 attempt(s). IV secured properly. No trauma to site. Patient tolerated procedure well. LABS DRAWN AND SENT NOTE INSERTED BY EDY BRAUN
[2020-01-31 12:06] LABS: Basophils # (auto) 0 10 ^3/uL (0-0.2); Basophils % (auto) 0.5 % (0.0-2.0); Eosinophils # (auto) 0.6 10 ^3/uL (0-0.8); Hematocrit 34.9 % (36.0-46.0); Hemoglobin 11.5 g/dL (12.2-16.2); Lymphocytes # (auto) 1.9 10 ^3/uL (0.4-5.4); Lymphocytes % (auto) 35.7 % (10.0-50.0); Mean Corpuscular Volume 91.9 fL (80.0-100.0); Monocytes # (auto) 0.5 10 ^3/uL (0-1.3); Monocytes % (auto) 8.6 % (0.0-12.0); Neutrophils # (auto) 2.4 10 ^3/uL (1.6-8.6); Neutrophils % (auto) 44.2 % (37.0-80.0); Nucleated Red Blood Cells % 0.1 %; White Blood Cell 5.4 10^3/uL (4.4-10.8)
[2020-01-31 12:07] LABS: Mean Corpuscular Hemoglobin 30.2 pg (28.0-32.0); Mean Corpuscular Hgb Conc. 32.9 g/dL (32.0-36.0); Platelet Count (auto) 255 10^3/uL (140-450); Red Cell Distribution Width 14.9 % (11.8-14.3)
[2020-01-31 12:09] LABS: Urine Blood Negative /uL (Negative); Urine Specific Gravity 1.011 (1.001-1.035)
[2020-01-31 12:16] LABS: Albumin 3.7 g/dL (3.4-5.0); Calcium 9.8 mg/dL (8.5-10.1); Magnesium 2.5 mg/dL (1.6-2.6); Potassium 3.8 mmol/L (3.5-5.1)
[2020-01-31 12:25] LABS: BUN/Creatinine Ratio 16.9; Bilirubin, Total 0.3 mg/dL (0.2-1.0); Total Protein 7.9 g/dL (6.4-8.2)
--- NOTE | 2020-01-31 13:49 | NUR ---
IV removal IV DC'd with sterile technique, catheter fully intact. Pressure dressing applied to site. Patient tolerated procedure well. Discharged with aftercare instructions per MD. NOTE: REMOVED BY FELISA BROWNING
[2020-01-31 13:51] VITALS: BP 124/64
--- NOTE | 2020-01-31 13:51 | NUR ---
Discharge Instructions See e-MAR for any mediations given with this visit. Patient education given on disease process. Patient verbalized understanding. Previous labs reviewed. Patient discharged in stable condition with after care instructions and follow up appointment. NOTE ROCEPHIN IV [id number] ADMIN BY FELISA VO IVP ADMIN BY FELISA BROWNING NS IV [id number] ADMIN BY FELISA BROWNING
== END | disposition home or self-care (01) ==
LOC: CHF HDHVI 10:20
PROVIDERS: ATTEND Internal Medicine
DX: N39.0 Urinary tract infection, site not specified (principal); I12.9 Hypertensive chronic kidney disease with stage 1 through stage 4 chronic kidney disease, or unspecified chronic kidney disease; N18.3 Chronic kidney disease, stage 3 (moderate); I25.10 Atherosclerotic heart disease of native coronary artery without angina pectoris; E86.0 Dehydration; R53.83 Other fatigue; R11.0 Nausea; D64.9 Anemia, unspecified; E83.40 Disorders of magnesium metabolism, unspecified; F41.9 Anxiety disorder, unspecified; E78.5 Hyperlipidemia, unspecified; E78.00 Pure hypercholesterolemia, unspecified; Z79.82 Long term (current) use of aspirin; Z90.49 Acquired absence of other specified parts of digestive tract; Z79.899 Other long term (current) drug therapy
CPT/HCPCS: 36415; 80053; 81003; 83735; 85025; 87086; 96365; 96375; G0463; J0696; J2405; J7060; 96367

== ENCOUNTER 2020-02-06 20:20 | Emergency (ER) | payer MEDICARE, MEDICAID ==
[~2020-02-06] VITALS: Ht 154.9 cm; Wt 49.9 kg
[~2020-02-06 20:20] MED LIST changes: -BUSP5TAB51 PO; -CIPR500T4 PO; +LISI40TA PO; -LISI40TA11 PO; -METO10TA3 PO; -ONDANSETRON HCL 4 MG/2 ML VIAL IV ONE; -ONDANSETRON HCL 4 MG/2 ML VIAL ONE; -SODIUM CHLORIDE 0.9% 500 ML IV ONE; -SUCR1TAB22 PO; -TRIA75TA55 PO; -cefTRIAXone 1GM/50ML D5W 50 ML IV ONE; -cefTRIAXone SOD 1,000 MG VL ONE
[2020-02-06 22:21] LABS: Basophils # (auto) 0.1 10 ^3/uL (0-0.2); Basophils % (auto) 0.7 % (0.0-2.0); Eosinophils # (auto) 0.5 10 ^3/uL (0-0.8); Eosinophils % (auto) 6.2 % (0.0-7.0); Hematocrit 37.4 % (36.0-46.0); Hemoglobin 12.3 g/dL (12.2-16.2); Lymphocytes # (auto) 3.6 10 ^3/uL (0.4-5.4); Lymphocytes % (auto) 48.2 % (10.0-50.0); Mean Corpuscular Hemoglobin 30.4 pg (28.0-32.0); Mean Corpuscular Hgb Conc. 32.9 g/dL (32.0-36.0); Mean Corpuscular Volume 92.2 fL (80.0-100.0); Monocytes # (auto) 0.7 10 ^3/uL (0-1.3); Monocytes % (auto) 8.9 % (0.0-12.0); Neutrophils # (auto) 2.7 10 ^3/uL (1.6-8.6); Nucleated Red Blood Cells % 0.1 %; Platelet Count (auto) 237 10^3/uL (140-450); Red Blood Cells 4.06 10^6/uL (4.0-5.20); Red Cell Distribution Width 14.9 % (11.8-14.3); White Blood Cell 7.5 10^3/uL (4.4-10.8)
[2020-02-06 22:43] LABS: Albumin 3.6 g/dL (3.4-5.0); Amylase 81 U/L (25-115); Anion Gap 8 (5-15); Blood Urea Nitrogen 23 mg/dL (7-18); Calcium 8.9 mg/dL (8.5-10.1); Carbon Dioxide 23 mmol/L (21-32); Chloride 99 mmol/L (98-107); Glucose 107 mg/dL (74-106); Lipase 224 U/L (73-393); Potassium 3.9 mmol/L (3.5-5.1); Sodium 130 mmol/L (136-145)
[2020-02-06 22:45] LABS: Alanine Aminotransferase 19 U/L (13-56); Aspartate Aminotransferase 26 U/L (15-37); BUN/Creatinine Ratio 17.3; Blood Alcohol < 3.0 mg/dL (0-5); GFR African American 49 mL/min; GFR Non-African American 41 mL/min
[2020-02-06 22:50] LABS: Alkaline Phosphatase 123 U/L (45-117); Bilirubin, Total 0.3 mg/dL (0.2-1.0); Total Protein 8.2 g/dL (6.4-8.2)
[2020-02-07 00:50] LABS: Urine Bacteria NONE SEEN /hpf (None Seen); Urine Blood Negative /uL (Negative); Urine Hyaline Cast FEW /lpf (0 - 2); Urine Specific Gravity 1.011 (1.001-1.035); Urine WBC 28 /hpf (0 - 5)
[2020-02-07] MEDS ORDERED: HYDROcodone-ACET 5/325MG TAB PO ONE ×2 (02:00)
[2020-02-07 04:51] VITALS: BP 162/75
== END 2020-02-07 05:03 | disposition home or self-care (01) ==
LOC: EDBD 20:20 → ER 20:20 → EDUNIT# 20:20 → ER 02-07 05:03
DX: N39.0 Urinary tract infection, site not specified (principal); I10 Essential (primary) hypertension; F41.9 Anxiety disorder, unspecified; Z79.82 Long term (current) use of aspirin; E78.5 Hyperlipidemia, unspecified; I25.10 Atherosclerotic heart disease of native coronary artery without angina pectoris; Z79.899 Other long term (current) drug therapy
CPT/HCPCS: 36415; 71045; 74176; 80053; 80320; 81001; 82150; 83605; 83690; 84484; 85025

== ENCOUNTER 2020-03-15 19:45 | Inpatient (IN) | payer MEDICARE, MEDICAID ==
[~2020-03-15] VITALS: Ht 152.4 cm; Wt 52.4 kg
[~2020-03-15 19:45] MED LIST changes: -LISI40TA PO; +LISI40TA11 PO
[2020-03-15] MEDS ORDERED: SODIUM CHLORIDE 0.9% 500 ML IV ONE (20:15)
[2020-03-15] MEDS ORDERED: ONDANSETRON HCL 4 MG/2 ML VIAL IV ONE (20:15)
[2020-03-15] MEDS ORDERED: MORPHINE SULF INJ 2 MG/ML SYRINGE 1ML IV ONE (20:15)
[2020-03-15 20:54] LABS: Urine WBC None Seen /hpf (0 - 5)
[2020-03-15 21:21] LABS: Urine Bacteria NONE SEEN /hpf (None Seen); Urine Blood Negative /uL (Negative); Urine Specific Gravity 1.013 (1.001-1.035)
[2020-03-15 22:20] LABS: Basophils # (auto) 0.1 10 ^3/uL (0-0.2); Basophils % (auto) 1.7 % (0.0-2.0); Eosinophils # (auto) 0.1 10 ^3/uL (0-0.8); Eosinophils % (auto) 1.2 % (0.0-7.0); Hematocrit 35.3 % (36.0-46.0); Hemoglobin 11.7 g/dL (12.2-16.2); Lymphocytes # (auto) 0.9 10 ^3/uL (0.4-5.4); Lymphocytes % (auto) 21.2 % (10.0-50.0); Mean Corpuscular Hgb Conc. 33.1 g/dL (32.0-36.0); Mean Corpuscular Volume 90.6 fL (80.0-100.0); Monocytes # (auto) 0.4 10 ^3/uL (0-1.3); Monocytes % (auto) 9.5 % (0.0-12.0); Neutrophils # (auto) 2.9 10 ^3/uL (1.6-8.6); Neutrophils % (auto) 66.4 % (37.0-80.0); Nucleated Red Blood Cells % 0.1 %; Platelet Count (auto) 215 10^3/uL (140-450); Red Cell Distribution Width 15.6 % (11.8-14.3); White Blood Cell 4.3 10^3/uL (4.4-10.8)
[2020-03-15 22:21] LABS: Alanine Aminotransferase 14 U/L (13-56); Albumin 3.5 g/dL (3.4-5.0); Anion Gap 9 (5-15); Aspartate Aminotransferase 23 U/L (15-37); BUN/Creatinine Ratio 12.3; Blood Alcohol < 3.0 mg/dL (0-5); Blood Urea Nitrogen 13 mg/dL (7-18); Calcium 8.6 mg/dL (8.5-10.1); Carbon Dioxide 23 mmol/L (21-32); Chloride 104 mmol/L (98-107); GFR African American 64 mL/min; GFR Non-African American 53 mL/min; Glucose 106 mg/dL (74-106); Potassium 3.1 mmol/L (3.5-5.1); Sodium 136 mmol/L (136-145)
[2020-03-15 22:24] LABS: Alkaline Phosphatase 131 U/L (45-117); Bilirubin, Total 0.3 mg/dL (0.2-1.0); Total Protein 7.6 g/dL (6.4-8.2)
[2020-03-15] MEDS ORDERED: VANCOMYCIN 1GM/250ML 250 ML IV ONE (23:30)
[2020-03-15] MEDS ORDERED: PIPERACILLIN-TAZOB 3.375GM 100 ML IV ONE (23:30)
[2020-03-16] MEDS ORDERED: ONDANSETRON HCL 4 MG/2 ML VIAL IV PRN (02:00)
[2020-03-16] MEDS ORDERED: cloNIDine HCL 0.1 MG TAB PO ONE (02:00)
[2020-03-16] MEDS ORDERED: NITROGLYCERIN 0.4 MG SL TAB SL PRN (02:00)
[2020-03-16] MEDS ORDERED: D5W/SOD CHL 0.45%/KCL 40MEQ 1,000 ML IV ONE (02:00)
[2020-03-16] MEDS ORDERED: MORPHINE SULF INJ 2 MG/ML SYRINGE 1ML IV PRN (02:00)
[2020-03-16] MEDS: HYDROmorphone HCL 2 MG/ML VL IV PRN ×3 (02:28→23:39)
[2020-03-16] MEDS: cloNIDine HCL 0.1 MG TAB PO SCH ×3 (07:06→21:39)
[2020-03-16] MEDS: METOCLOPRAMIDE HCL 10 MG TAB PO SCH ×3 (07:07→21:39)
[2020-03-16] MEDS: TOPIRAMATE 100 MG TAB PO SCH (07:07)
[2020-03-16] MEDS ORDERED: VANCOMYCIN 1GM/250ML 250 ML IV ONE (08:00)
[2020-03-16] MEDS ORDERED: cefTRIAXone 1GM/50ML D5W 50 ML IV ONE (08:00)
[2020-03-16] MEDS ORDERED: MAGNESIUM CITRATE SOLUTION 300 ML BTL PO ONE (08:00)
--- NOTE | 2020-03-16 08:00 | NUR ---
Telemetry admit from ER VERNA JUAREZ admitted to Telemetry unit after SBAR received. Patient oriented to Yasmin sanderson RN, unit, room, bed, and unit policies regarding patient care and visiting hours. Patient now on continuous telemetry monitoring, tele box #73 and telemetry reading on arrival to unit is NSR. Patient placed on bedside oxygen, weighed by bedscale and encouraged to call if they need something. All questions and concerns addressed, patient verbalized understanding.
[2020-03-16] MEDS ORDERED: BUSP5TAB51 PO (08:27)
[2020-03-16] MEDS ORDERED: METO10TA3 PO (08:27)
[2020-03-16] MEDS ORDERED: SUCR1TAB22 PO (08:27)
[2020-03-16] MEDS ORDERED: TRIA75TA55 PO (08:27)
[2020-03-16] MEDS ORDERED: CIPR500T4 PO (08:52)
[2020-03-16 09:19] VITALS: BP 143/81
[2020-03-16] MEDS: METOPROLOL SUCCINATE XL 50 MG TAB PO SCH ×2 (09:47→21:40)
[2020-03-16] MEDS: SUCRALFATE 1 GM TAB PO SCH (09:47)
[2020-03-16] MEDS: LISINOPRIL 20 MG TAB PO SCH (09:48)
--- NOTE | 2020-03-16 10:45 | NUR ---
AT BEDSIDE DR RINALDI AT BEDSIDE. NEW ORDERS RECEIVED, WILL CARRY OUT AND CONTINUE CARE.
[2020-03-16 12:24] VITALS: BP 139/63
[2020-03-16] MEDS: ACYCLOVIR 400 MG TAB PO SCH ×2 (14:48→21:40)
[2020-03-16 16:43] VITALS: BP 101/62
--- NOTE | 2020-03-16 19:45 | NUR ---
Opening Shift Note Assumed care of patient, awake and alertx4. No S/S of distress/SOB or pain. BED ALARM is on, instructed patient to call when she wants to get out of bed, she verbalized understanding. Call light is within reach, side rails up x2, bed is in the lowest position. Instructed on POC and to call for assist PRN, will continue to monitor for changes Q1hr and PRN.
[2020-03-16 22:00] VITALS: BP 148/83
[2020-03-17 05:00] VITALS: BP 151/74
[2020-03-17 05:45] LABS: Basophils # (auto) 0 10 ^3/uL (0-0.2); Basophils % (auto) 0.7 % (0.0-2.0); Eosinophils # (auto) 0.1 10 ^3/uL (0-0.8); Hematocrit 34.3 % (36.0-46.0); Lymphocytes % (auto) 30.5 % (10.0-50.0); Mean Corpuscular Hemoglobin 29.4 pg (28.0-32.0); Monocytes # (auto) 0.4 10 ^3/uL (0-1.3); Monocytes % (auto) 12.4 % (0.0-12.0); Neutrophils # (auto) 1.7 10 ^3/uL (1.6-8.6); Neutrophils % (auto) 52.4 % (37.0-80.0); Nucleated Red Blood Cells % 0.2 %; Platelet Count (auto) 172 10^3/uL (140-450); Red Blood Cells 3.73 10^6/uL (4.0-5.20); Red Cell Distribution Width 15.8 % (11.8-14.3); White Blood Cell 3.3 10^3/uL (4.4-10.8)
[2020-03-17] MEDS: ACYCLOVIR 400 MG TAB PO SCH ×3 (05:58→22:05)
[2020-03-17] MEDS: METOCLOPRAMIDE HCL 10 MG TAB PO SCH ×3 (05:59→22:05)
[2020-03-17] MEDS: cloNIDine HCL 0.1 MG TAB PO SCH ×3 (05:59→22:05)
[2020-03-17] MEDS: HYDROmorphone HCL 2 MG/ML VL IV PRN ×2 (05:59→10:01)
[2020-03-17 06:04] LABS: Potassium 3.2 mmol/L (3.5-5.1)
[2020-03-17 06:08] LABS: Calcium 8.6 mg/dL (8.5-10.1)
--- NOTE | 2020-03-17 06:50 | NUR ---
Patient removed her IV to her RAC, she states, "It just came out." The IV catheter was intact and placed in the sharps container. No bleeding noted to site. IV to the right shoulder is intact, IV fluids connected to right shoulder IV. Call light is within reach, instructed patient to call for assistance. She verbalized understanding.
[2020-03-17 09:00] VITALS: BP 145/75
--- NOTE | 2020-03-17 09:55 | NUR ---
IV CATHETER TO RIGHT SHOULDER DISLODGED- PER PT STATEMENT. CATHETER #20 APPEARS INTACT. NO ACTIVE BLEEDING. IV INSERTION TO RIGHT SHOULDER #22. 1st ATTEMPT, PATENT, FLUSHES WELL. PT TOLERATED PROCEDURE WELL.
[2020-03-17] MEDS: ASCORBIC ACID 500 MG TAB PO SCH (10:01)
[2020-03-17] MEDS: SUCRALFATE 1 GM TAB PO SCH (10:02)
[2020-03-17] MEDS: LISINOPRIL 20 MG TAB PO SCH (10:02)
[2020-03-17] MEDS: METOPROLOL SUCCINATE XL 50 MG TAB PO SCH ×2 (10:02→22:05)
[2020-03-17] MEDS: TOPIRAMATE 100 MG TAB PO SCH (10:02)
[2020-03-17] MEDS: ZINC SULFATE 220mg CAP or TAB PO SCH (10:03)
[2020-03-17 13:00] VITALS: BP 124/79
[2020-03-17 17:00] VITALS: BP 124/55
--- NOTE | 2020-03-17 19:30 | NUR ---
RECEIVED PATIENT FROM DAY SHIFT RN. PATIENT RESTING IN BED. NO S/S OF DISTRESS NOTED. PATIENT HAD BM ON THE BED. CLEANED PATIENT, TOTAL LINEN CHANGED. PATIENT TOLERATED WELL. REORIENTED PATIENT TIME AND PLACE. INTACT BLISTER NOTED ON RIGHT FLANK SIDE WITH REDNESS. HOT TO TOUCH. REORIENTED NEEDED. POC INSTRUCTED AND ENCOURAGED PATIENT TO CALL FOR STRAIGHTENER IF NEEDED. BED IN LOWEST POSITION WITH SIDE RAILS UP X 2. CALL STONE WITHIN REACH. ALARM ON. CONTINUE TO MONITOR FOR CHANGES Q1H AND PRN.
[2020-03-17 22:00] VITALS: BP 160/67
--- NOTE | 2020-03-17 22:30 | NUR ---
SCHEDULED ORAL MEDICATIONS GIVEN ORDERED. PATIENT SWALLOWED WELL. NO S/S OF ASPIRATION NOTED. CONTINUE TO MONITOR.
--- NOTE | 2020-03-18 02:47 | NUR ---
ASSISTED PATIENT FOR BEDSIDE COMMODE. PATIENT TOLERATED WELL. NO S/S OF DISTRESS NOTED. CONTINUE TO MONITOR.
[2020-03-18 05:19] VITALS: BP 156/51
[2020-03-18] MEDS: METOCLOPRAMIDE HCL 10 MG TAB PO SCH ×3 (06:02→22:06)
[2020-03-18] MEDS: ACYCLOVIR 400 MG TAB PO SCH ×3 (06:02→22:06)
[2020-03-18] MEDS: cloNIDine HCL 0.1 MG TAB PO SCH ×3 (06:02→22:05)
--- NOTE | 2020-03-18 06:03 | NUR ---
SCHEDULED ORAL MEDICATIONS GIVEN ORDERED. PATIENT SWALLOWED WELL. NO S/S OF ASPIRATION NOTED. CONTINUE TO MONITOR.
[2020-03-18] MEDS: ZINC SULFATE 220mg CAP or TAB PO SCH (10:18)
[2020-03-18] MEDS: METOPROLOL SUCCINATE XL 50 MG TAB PO SCH ×2 (10:18→22:06)
[2020-03-18] MEDS: ASCORBIC ACID 500 MG TAB PO SCH (10:18)
[2020-03-18] MEDS: TOPIRAMATE 100 MG TAB PO SCH (10:18)
[2020-03-18] MEDS: LISINOPRIL 20 MG TAB PO SCH (10:18)
[2020-03-18] MEDS: SUCRALFATE 1 GM TAB PO SCH (10:19)
[2020-03-18] MEDS: HYDROmorphone HCL 2 MG/ML VL IV PRN (14:16)
--- NOTE | 2020-03-18 17:00 | NUR ---
PT CONFUSED, AND RESTLESS. CN AWARE AND REQUEST FOR 1:1 DIRECT OBSERVATION LET KNOWN. PT HIGH RISK FOR FALL. ON BED ALARM.
--- NOTE | 2020-03-18 19:52 | NUR ---
RECEIVED PATIENT FROM DAY SHIFT RN. PATIENT RESTING IN BED. NO S/S OF DISTRESS NOTED. INTACT BLISTER NOTED ON RIGHT FLANK SIDE WITH REDNESS. HOT TO TOUCH.. PATIENT IS GETTING AGITATE AND RESTLESS, SHE TOOK OFF HER TELE BOX, HIDING STUFF IN HER PURSE, TRYING TO GET OUT OF BED, AND LOOKING FOR HER DOG. REORIENTED PATIENT PLACE, TIME, AND PLACE. PATIENT COULD NOT COME BACK. CHARGE NURSE KATERINA AWARE, SITTER ASSIGNED. POC INSTRUCTED AND ENCOURAGED PATIENT TO CALL FOR BARREL MARKER IF NEEDED. BED IN LOWEST POSITION WITH SIDE RAILS UP X 2. CALL STONE WITHIN REACH. ALARM ON. CONTINUE TO MONITOR FOR CHANGES Q1H AND PRN.
--- NOTE | 2020-03-18 21:00 | NUR ---
PATIENT'S SON MALENA CALLED. VERIFIED PASSWORD. UPDATED PATIENT'S CURRENT CONDITION. MALENA TRIED TO CALM PATIENT DOWN, AND HE ALSO REQUESTED TO RESUME PATIENT'S HOME MEDICATION TO CALM PATIENT DOWN. WILL PAGE MD LATER. CONTINUE TO MONITOR.
--- NOTE | 2020-03-18 21:15 | NUR ---
MESSAGED Dr. RINALDI MESSAGED REGARDING TO PATIENT IS AGITATE AND GETTING RESTLESS. PATIENT'S SON MALENA WOULD LIKE TO HAVE MEDICATION HER TAKES AT HOME TO CALM HER DOWN. Waiting for call back. Continue care.
--- NOTE | 2020-03-18 21:46 | NUR ---
Called/paged AGAIN Dr. RINALDI called re:PATIENT'S AGITATION AND RESTLESSNESS. Waiting for call back. Continue care.
[2020-03-18 22:00] VITALS: BP 146/67
--- NOTE | 2020-03-18 22:55 | NUR ---
returned MESSAGE Dr. RINALDI returned MESSAGE, orders received. TO RESUME PATIENT'S HOME MEDICATION XANAX AND BUSPITONE. Continue care.
[2020-03-18] MEDS ORDERED: ALPRAZolam 0.25 MG TAB PO PRN (23:00)
[2020-03-19] MEDS ORDERED: FAMOTIDINE 20 MG TAB PO ONE
[2020-03-19 05:00] VITALS: BP 128/59
[2020-03-19] MEDS ORDERED: busPIRone HCL 10 MG TAB PO SCH (06:00)
[2020-03-19] MEDS: cloNIDine HCL 0.1 MG TAB PO SCH ×2 (06:08→17:58)
[2020-03-19] MEDS: ACYCLOVIR 400 MG TAB PO SCH ×2 (06:08→17:59)
[2020-03-19] MEDS: METOCLOPRAMIDE HCL 10 MG TAB PO SCH ×2 (06:08→17:59)
[2020-03-19 08:00] VITALS: BP 128/59
[2020-03-19] MEDS: METOPROLOL SUCCINATE XL 50 MG TAB PO SCH (09:58)
[2020-03-19] MEDS: ASCORBIC ACID 500 MG TAB PO SCH (09:59)
[2020-03-19] MEDS: LISINOPRIL 20 MG TAB PO SCH (09:59)
[2020-03-19] MEDS ORDERED: FAMOTIDINE 20 MG TAB PO SCH (10:00)
--- NOTE | 2020-03-19 15:45 | NUR ---
Nutrition Assessment Note please see attached link for complete assessment [employer] needs BW 52 [id number] kcals (25*-30 kcal/kgBW), Est Protein needs: 42-52 gms/day (0.8-1.0gm/kgBW). Will continue to monitor and reassess prn. Addendum: 03/19/20 at [address] Amended: Links added.
[2020-03-19 17:00] VITALS: BP 145/67
[2020-03-19] MEDS: SUCRALFATE 1 GM TAB PO SCH (17:58)
[2020-03-19] MEDS: ZINC SULFATE 220mg CAP or TAB PO SCH (17:58)
[2020-03-19] MEDS: TOPIRAMATE 100 MG TAB PO SCH (17:59)
[2020-03-19 18:52] VITALS: BP 145/67
--- NOTE | 2020-03-19 19:36 | NUR ---
RECEIVED PATIENT FROM DAY SHIFT RN. PATIENT RESTING IN BED. NO S/S OF DISTRESS NOTED. DENIED PAIN FOR NOW. INTACT BLISTER NOTED ON RIGHT FLANK SIDE WITH REDNESS. HOT TO TOUCH. PATIENT UNDERSTOOD AND WAITING FOR HER SON TO PICK HER UP FOR DISCHARGE. BED IN LOWEST POSITION WITH SIDE RAILS UP X 2. CALL STONE WITHIN REACH. ALARM ON. SITTER AT BEDSIDE FOR SAFETY. CONTINUE TO MONITOR FOR CHANGES Q1H AND PRN.
--- NOTE | 2020-03-19 20:33 | NUR ---
CALLED PATIENT'S SON MALENA FOR DISCHARGE, MALENA SAID HE IS ON THE WAY. PATIENT AWARE. CONTINUE TO MONITOR.
--- NOTE | 2020-03-19 21:03 | NUR ---
Discharge instructions PREPARED BY DAY SHIFT RN. AND given as ordered. Encourage to follow up with PMD as instructed. All questions and concerns addressed. Patient AND FAMILY verbalized understanding. Medication reconciliation form completed and copy given to patient. Home medications held in Pharmacy returned to patient,. IV removed with catheter intact, pressure dressing applied,. Telemetry unit returned to ICU. Patient taken to vehicle via wheelchair with all personal belongings, accompanied by staff. No distress noted at time of departure.
== END 2020-03-19 21:03 | disposition home or self-care (01) | DRG 595 ==
LOC: ER 19:45 → EDBD 19:45 → TELE 19:46 → TELE-WESTW 03-16 07:53
PROVIDERS: ADMIT Internal Medicine Cardiovascular Disease; ATTEND Internal Medicine Cardiovascular Disease
DX: B02.9 Zoster without complications (principal); G93.41 Metabolic encephalopathy; N39.0 Urinary tract infection, site not specified; I50.32 Chronic diastolic (congestive) heart failure; G47.33 Obstructive sleep apnea (adult) (pediatric); E87.6 Hypokalemia; I11.0 Hypertensive heart disease with heart failure; K21.9 Gastro-esophageal reflux disease without esophagitis; Z20.828 Contact with and (suspected) exposure to other viral communicable diseases; I25.10 Atherosclerotic heart disease of native coronary artery without angina pectoris; F41.9 Anxiety disorder, unspecified; M19.90 Unspecified osteoarthritis, unspecified site; Z79.899 Other long term (current) drug therapy
CPT/HCPCS: 36415; 70450; 71045; 74176; 80048; 80053; 80320; 81001; 83605; 83880; 84484; 85025; 87040; 87086; 93005; G0378; J0696; J2405; J2543

== ENCOUNTER 2020-04-18 19:38 | Inpatient (IN) | payer MEDICARE, MEDICAID ==
[~2020-04-18] VITALS: Ht 152.4 cm; Wt 56.0 kg
[~2020-04-18 19:38] MED LIST changes: +BUSP5TAB51 PO; +CIPR500T4 PO; -GABA300C10 PO; +METO10TA3 PO; +SUCR1TAB22 PO; +TRIA75TA55 PO
[2020-04-18 23:22] LABS: Basophils # (auto) 0 10 ^3/uL (0-0.2); Basophils % (auto) 0.3 % (0.0-2.0); Eosinophils # (auto) 0.7 10 ^3/uL (0-0.8); Eosinophils % (auto) 8.6 % (0.0-7.0); Hematocrit 32.9 % (36.0-46.0); Hemoglobin 10.6 g/dL (12.2-16.2); Lymphocytes # (auto) 1.9 10 ^3/uL (0.4-5.4); Lymphocytes % (auto) 24.4 % (10.0-50.0); Mean Corpuscular Hemoglobin 29.2 pg (28.0-32.0); Mean Corpuscular Hgb Conc. 32.2 g/dL (32.0-36.0); Mean Corpuscular Volume 90.7 fL (80.0-100.0); Monocytes # (auto) 0.5 10 ^3/uL (0-1.3); Monocytes % (auto) 6.5 % (0.0-12.0); Neutrophils # (auto) 4.8 10 ^3/uL (1.6-8.6); Neutrophils % (auto) 60.2 % (37.0-80.0); Nucleated Red Blood Cells % 0.1 %; Platelet Count (auto) 210 10^3/uL (140-450); Red Blood Cells 3.62 10^6/uL (4.0-5.20); White Blood Cell 7.9 10^3/uL (4.4-10.8)
[2020-04-18 23:44] LABS: Alanine Aminotransferase 12 U/L (13-56); Albumin 2.3 g/dL (3.4-5.0); Anion Gap 12 (5-15); Aspartate Aminotransferase 23 U/L (15-37); BUN/Creatinine Ratio 12.2; Blood Alcohol < 3.0 mg/dL (0-5); Blood Urea Nitrogen 55 mg/dL (7-18); Calcium 8.7 mg/dL (8.5-10.1); Carbon Dioxide 18 mmol/L (21-32); Chloride 109 mmol/L (98-107); GFR African American 12 mL/min; GFR Non-African American 10 mL/min; Glucose 97 mg/dL (74-106); Potassium 3.1 mmol/L (3.5-5.1); Sodium 139 mmol/L (136-145)
[2020-04-18 23:49] LABS: Alkaline Phosphatase 97 U/L (45-117); Bilirubin, Total 0.3 mg/dL (0.2-1.0); Total Protein 6.6 g/dL (6.4-8.2)
[2020-04-19 00:07] LABS: INR 1.06 (0.9-1.15); Partial Thromboplastin Time 29.9 sec (23.0-31.2)
[2020-04-19 01:14] LABS: Urine Bacteria MANY /hpf (None Seen); Urine Blood TRACE /uL (Negative); Urine Specific Gravity 1.011 (1.001-1.035); Urine WBC 22 /hpf (0 - 5); Urine WBC Clumps PRESENT /hpf (None Seen)
[2020-04-19 01:29] LABS: Alcohol, Urine < 3.0 mg/dL (0-10); Amphetamine Screen, Urine NEGATIVE (NEGATIVE); Barbiturate Scree,Urine NEGATIVE (NEGATIVE); Benzodiazephine Screen, Urine POSITIVE (NEGATIVE); Cannabinoid Screen, Urine NEGATIVE (NEGATIVE); Cocaine Screen, Urine NEGATIVE (NEGATIVE); Opiate Scree,Urine POSITIVE (NEGATIVE); Phencyclidine Screen, Urine NEGATIVE (NEGATIVE)
[2020-04-19] MEDS ORDERED: ACETAMINOPHEN 325 MG TAB PO ONE ×2 (03:00)
[2020-04-19] MEDS ORDERED: DOXYCYCLINE 100MG/250ML 250 ML IV ONE (03:15)
[2020-04-19] MEDS ORDERED: DexAMETHasone SOD PHOS 10MG/1ML VIAL INJ IV ONE (03:15)
[2020-04-19] MEDS ORDERED: ONDANSETRON HCL 4 MG/2 ML VIAL IV PRN (07:45)
[2020-04-19] MEDS ORDERED: MORPHINE SULF INJ 2 MG/ML SYRINGE 1ML IV PRN (07:45)
[2020-04-19] MEDS ORDERED: NITROGLYCERIN 0.4 MG SL TAB SL PRN (07:45)
[2020-04-19] MEDS ORDERED: POTASSIUM CHL 20 Meq TABLET PO ONE (07:45)
[2020-04-19] MEDS ORDERED: ACETAMINOPHEN 325 MG TAB PO PRN (07:45)
[2020-04-19] MEDS ORDERED: POTASSIUM EFFERVESENT TAB 25 MEQ PO ONE (08:45)
[2020-04-19] MEDS: ENOXAPARIN SOD 30 MG/0.3 ML SYRINGE SC SCH (09:26)
[2020-04-19] MEDS: ASPirin 81 mg TAB PO SCH (09:31)
[2020-04-19] MEDS ORDERED: MULTIPLE VITAMIN TAB PO SCH (10:00)
[2020-04-19] MEDS ORDERED: ASCORBIC ACID 500 MG TAB PO SCH (10:00)
[2020-04-19] MEDS ORDERED: FAMOTIDINE 20 MG TAB PO SCH (10:00)
[2020-04-19] MEDS ORDERED: ZINC SULFATE 220mg CAP or TAB PO SCH (10:00)
[2020-04-19 10:10] VITALS: BP 145/89
[2020-04-19 10:26] VITALS: BP 145/89
[2020-04-19] MEDS: DOCUSATE SOD 100 MG CAP PO PRN (11:14)
[2020-04-19 12:17] LABS: Albumin 2.3 g/dL (3.4-5.0); Calcium 8.3 mg/dL (8.5-10.1); Potassium 3.1 mmol/L (3.5-5.1)
[2020-04-19 12:18] LABS: Sodium Urine 25 mmol/L (40-220)
[2020-04-19 12:20] LABS: Creatinine, Urine 48 mg/dL (30.0-125.0)
[2020-04-19 12:20] LABS: BUN/Creatinine Ratio 12.7; Phosphorus 3.8 mg/dL (2.5-4.90)
[2020-04-19 13:00] VITALS: BP 136/73
[2020-04-19] MEDS ORDERED: SODIUM CHLOR 0.9% PF (SALINE LOCK) 10ML VIAL/SYR IV SCH (14:00)
[2020-04-19] MEDS ORDERED: cefTRIAXone 1GM/50ML D5W 50 ML IV ONE (14:30)
[2020-04-19] MEDS: SODIUM CHLORIDE 0.9% 2,000 ML IV SCH (15:31)
[2020-04-19 16:51] VITALS: BP 146/78
[2020-04-19] MEDS ORDERED: DOXYCYCLINE 100MG/250ML 250 ML IV SCH (17:00)
[2020-04-19 22:00] VITALS: BP 164/83
[2020-04-19] MEDS ORDERED: GABAPENTIN 100 MG CAP PO ONE (23:00)
[2020-04-19] MEDS ORDERED: TEMAZEPAM 15 MG CAP PO ONE (23:00)
[2020-04-20] MEDS ORDERED: HYDROcodone-ACET 5/325MG TAB PO ONE (00:15)
[2020-04-20] MEDS ORDERED: cloNIDine HCL 0.1 MG TAB PO ONE (02:45)
[2020-04-20 03:04] VITALS: BP 144/77
[2020-04-20] MEDS: HYDROcodone-ACET 5/325MG TAB PO PRN ×2 (04:47→18:04)
[2020-04-20 05:00] VITALS: BP 149/86
[2020-04-20 07:55] LABS: Basophils # (auto) 0 10 ^3/uL (0-0.2); Basophils % (auto) 0.4 % (0.0-2.0); Eosinophils # (auto) 0 10 ^3/uL (0-0.8); Hematocrit 25.7 % (36.0-46.0); Hemoglobin 8.5 g/dL (12.2-16.2); Lymphocytes # (auto) 1.1 10 ^3/uL (0.4-5.4); Lymphocytes % (auto) 16.2 % (10.0-50.0); Mean Corpuscular Hemoglobin 29.3 pg (28.0-32.0); Monocytes # (auto) 0.3 10 ^3/uL (0-1.3); Neutrophils # (auto) 5.5 10 ^3/uL (1.6-8.6); Neutrophils % (auto) 78.4 % (37.0-80.0); Platelet Count (auto) 164 10^3/uL (140-450); Red Blood Cells 2.89 10^6/uL (4.0-5.20)
[2020-04-20 08:13] LABS: Potassium 3.7 mmol/L (3.5-5.1)
[2020-04-20 08:19] LABS: BUN/Creatinine Ratio 15.4; Bilirubin, Total 0.2 mg/dL (0.2-1.0); Total Protein 5.3 g/dL (6.4-8.2)
[2020-04-20] MEDS: cefTRIAXone 1GM/50ML D5W 50 ML IV SCH (08:59)
[2020-04-20 09:00] VITALS: BP 146/76
[2020-04-20] MEDS: ASPirin 81 mg TAB PO SCH (10:22)
[2020-04-20] MEDS: ENOXAPARIN SOD 30 MG/0.3 ML SYRINGE SC SCH (10:23)
[2020-04-20] MEDS: SODIUM CHLORIDE 0.9% 2,000 ML IV SCH ×2 (11:30→21:19)
[2020-04-20 12:00] VITALS: BP 139/75
[2020-04-20] MEDS ORDERED: PHENAZOPYRIDINE HCL 100 MG TAB PO SCH (12:00)
[2020-04-20 17:00] VITALS: BP 134/70
[2020-04-20] MEDS: DOCUSATE SOD 100 MG CAP PO PRN (21:20)
[2020-04-20 22:00] VITALS: BP 160/87
[2020-04-21] MEDS ORDERED: PANTOPRAZOLE 40 MG/10 ML VIAL INJ IV ONE
[2020-04-21] MEDS: MORPHINE SULF INJ 2 MG/ML SYRINGE 1ML IV PRN ×3 (00:13→20:42)
[2020-04-21 05:00] VITALS: BP 154/85
[2020-04-21 06:14] LABS: Basophils # (auto) 0 10 ^3/uL (0-0.2); Basophils % (auto) 0.3 % (0.0-2.0); Eosinophils # (auto) 0.2 10 ^3/uL (0-0.8); Eosinophils % (auto) 2.3 % (0.0-7.0); Hematocrit 29.9 % (36.0-46.0); Lymphocytes # (auto) 2.2 10 ^3/uL (0.4-5.4); Lymphocytes % (auto) 27.9 % (10.0-50.0); Mean Corpuscular Hemoglobin 29.8 pg (28.0-32.0); Mean Corpuscular Hgb Conc. 33.4 g/dL (32.0-36.0); Mean Corpuscular Volume 89.4 fL (80.0-100.0); Monocytes # (auto) 0.4 10 ^3/uL (0-1.3); Monocytes % (auto) 5.7 % (0.0-12.0); Neutrophils % (auto) 63.8 % (37.0-80.0); Platelet Count (auto) 222 10^3/uL (140-450); Red Blood Cells 3.35 10^6/uL (4.0-5.20); Red Cell Distribution Width 16.8 % (11.8-14.3); White Blood Cell 7.8 10^3/uL (4.4-10.8)
[2020-04-21 06:42] LABS: BUN/Creatinine Ratio 19.6; Calcium 8.1 mg/dL (8.5-10.1); Potassium 3.9 mmol/L (3.5-5.1)
[2020-04-21 08:00] VITALS: BP 183/94
[2020-04-21] MEDS: ASPirin 81 mg TAB PO SCH (09:35)
[2020-04-21] MEDS: PANTOPRAZOLE 40 MG/10 ML VIAL INJ IV SCH (09:37)
[2020-04-21] MEDS: ENOXAPARIN SOD 30 MG/0.3 ML SYRINGE SC SCH (09:37)
[2020-04-21] MEDS: cefTRIAXone 1GM/50ML D5W 50 ML IV SCH (09:38)
[2020-04-21] MEDS: HYDROcodone-ACET 5/325MG TAB PO PRN ×2 (09:49→22:55)
[2020-04-21] MEDS ORDERED: ALPRAZolam 0.25 MG TAB PO PRN ×2 (11:15→11:30)
[2020-04-21] MEDS ORDERED: ALPRAZolam 0.25 MG TAB PO ONE (11:15)
[2020-04-21] MEDS ORDERED: TOPIRAMATE 100 MG TAB PO ONE (11:30)
[2020-04-21] MEDS ORDERED: METOPROLOL SUCCINATE XL 50 MG TAB PO ONE (14:00)
[2020-04-21] MEDS: busPIRone HCL 10 MG TAB PO SCH ×2 (14:58→21:30)
[2020-04-21] MEDS: SODIUM CHLORIDE 0.9% 2,000 ML IV SCH (17:30)
[2020-04-21 17:38] VITALS: BP 145/85
[2020-04-21 22:00] VITALS: BP 161/84
[2020-04-22 05:00] VITALS: BP 191/100
[2020-04-22] MEDS: busPIRone HCL 10 MG TAB PO SCH ×3 (05:44→21:21)
[2020-04-22 06:06] LABS: Basophils # (auto) 0 10 ^3/uL (0-0.2); Basophils % (auto) 0.4 % (0.0-2.0); Eosinophils # (auto) 0.9 10 ^3/uL (0-0.8); Eosinophils % (auto) 14.5 % (0.0-7.0); Hemoglobin 10.7 g/dL (12.2-16.2); Lymphocytes # (auto) 2.5 10 ^3/uL (0.4-5.4); Lymphocytes % (auto) 39.6 % (10.0-50.0); Mean Corpuscular Hemoglobin 29.7 pg (28.0-32.0); Mean Corpuscular Hgb Conc. 33.5 g/dL (32.0-36.0); Mean Corpuscular Volume 88.8 fL (80.0-100.0); Monocytes # (auto) 0.5 10 ^3/uL (0-1.3); Monocytes % (auto) 7.5 % (0.0-12.0); Neutrophils # (auto) 2.4 10 ^3/uL (1.6-8.6); Platelet Count (auto) 237 10^3/uL (140-450); Red Cell Distribution Width 16.7 % (11.8-14.3); White Blood Cell 6.4 10^3/uL (4.4-10.8)
[2020-04-22 06:23] LABS: Calcium 8.7 mg/dL (8.5-10.1); Potassium 4.1 mmol/L (3.5-5.1)
[2020-04-22 06:26] LABS: BUN/Creatinine Ratio 22.3
[2020-04-22] MEDS: cloNIDine HCL 0.1 MG TAB PO PRN ×2 (07:02→15:53)
[2020-04-22 09:00] VITALS: BP 129/70
[2020-04-22] MEDS: ENOXAPARIN SOD 30 MG/0.3 ML SYRINGE SC SCH (10:00)
[2020-04-22] MEDS: ASPirin 81 mg TAB PO SCH (10:18)
[2020-04-22] MEDS: cefTRIAXone 1GM/50ML D5W 50 ML IV SCH (10:18)
[2020-04-22] MEDS: TOPIRAMATE 100 MG TAB PO SCH (10:18)
[2020-04-22] MEDS: PANTOPRAZOLE 40 MG/10 ML VIAL INJ IV SCH (10:18)
[2020-04-22] MEDS: METOPROLOL SUCCINATE XL 50 MG TAB PO SCH (10:19)
[2020-04-22 13:00] VITALS: BP 151/73
[2020-04-22] MEDS: SODIUM CHLORIDE 0.9% 2,000 ML IV SCH (13:30)
[2020-04-22 16:47] VITALS: BP 160/72
[2020-04-22] MEDS: MORPHINE SULF INJ 2 MG/ML SYRINGE 1ML IV PRN (17:00)
[2020-04-22 22:00] VITALS: BP 121/68
[2020-04-23] MEDS: HYDROcodone-ACET 5/325MG TAB PO PRN (01:01)
[2020-04-23] MEDS: cloNIDine HCL 0.1 MG TAB PO PRN (04:45)
[2020-04-23 05:00] VITALS: BP_SYST 163; BP_SYST 182; BP_DIAS 80; BP_DIAS 82
[2020-04-23] MEDS: busPIRone HCL 10 MG TAB PO SCH ×2 (06:14→14:21)
[2020-04-23 09:00] VITALS: BP 147/79
[2020-04-23] MEDS: cefTRIAXone 1GM/50ML D5W 50 ML IV SCH (12:07)
[2020-04-23] MEDS: ASPirin 81 mg TAB PO SCH (12:07)
[2020-04-23] MEDS: PANTOPRAZOLE 40 MG/10 ML VIAL INJ IV SCH (12:07)
[2020-04-23] MEDS: METOPROLOL SUCCINATE XL 50 MG TAB PO SCH (12:08)
[2020-04-23] MEDS: ENOXAPARIN SOD 30 MG/0.3 ML SYRINGE SC SCH (12:08)
[2020-04-23] MEDS: TOPIRAMATE 100 MG TAB PO SCH (12:45)
[2020-04-23 13:00] VITALS: BP 162/89
[2020-04-23 14:48] VITALS: BP 117/79
[2020-04-23 15:30] VITALS: BP 117/79
== END 2020-04-23 18:32 | disposition home or self-care (01) | DRG 871 ==
LOC: ER 19:38 → EDBD 19:38 → TELE 19:39 → TELE-EAST 04-19 10:17 → TELE-WESTW 04-19 15:00 → TELE-CENTR 04-23 14:14
PROVIDERS: ADMIT Nurse Practitioner Family; ATTEND Internal Medicine Cardiovascular Disease
DX: A41.9 Sepsis, unspecified organism (principal); G93.41 Metabolic encephalopathy; I50.33 Acute on chronic diastolic (congestive) heart failure; N17.0 Acute kidney failure with tubular necrosis; N39.0 Urinary tract infection, site not specified; E44.1 Mild protein-calorie malnutrition; R64 Cachexia; I13.0 Hypertensive heart and chronic kidney disease with heart failure and stage 1 through stage 4 chronic kidney disease, or unspecified chronic kidney disease; D63.8 Anemia in other chronic diseases classified elsewhere; E87.6 Hypokalemia; Z20.828 Contact with and (suspected) exposure to other viral communicable diseases; Z68.26 Body mass index [BMI] 26.0-26.9, adult; N18.30 Chronic kidney disease, stage 3 unspecified; E78.5 Hyperlipidemia, unspecified; I25.10 Atherosclerotic heart disease of native coronary artery without angina pectoris; H91.90 Unspecified hearing loss, unspecified ear; M19.90 Unspecified osteoarthritis, unspecified site; F41.9 Anxiety disorder, unspecified; Z86.19 Personal history of other infectious and parasitic diseases
CPT/HCPCS: 36415; 51702; 70450; 71045; 76775; 80048; 80053; 80069; 80307; 80320; 81001; 82570; 83605; 83735; 83880; 84300; 84443; 84484; 85025; 85379; 85610; 85730; 87040; 87086; 87088; 87186; 87426; 93005; 96365; 96366; 96375; 97163; C9113; G0378; J0696; J1100; J3490

== ENCOUNTER → 2020-05-16 | Outpatient (CLI) | payer MEDICARE, MEDICAID ==
[~2020-05-16] MED LIST changes: +SODIUM CHLORIDE 0.9% 250 ML IV ONE; +levoFLOXacin 500MG 100 ML IV ONE
[2020-05-16 11:55] VITALS: BP 112/67
--- NOTE | 2020-05-16 11:55 | NUR ---
CLINIC PT ARRIVE TO CLINIC FROM BACK OFFICE WITH ORDERS FOR IV HYDRATION AND IV ANTIBIOTICS AND URINE CULTURE, A/OX3, AMBULATORY WITH WALKER ASSISTED BY SON, BREATHING IS EVEN AND UNLABORED.
--- NOTE | 2020-05-16 12:03 | NUR ---
IV insertion IV access obtained, via clean sterile technique by inserting 22 gauge catheter at LAC after 1 attempt(s). IV secured properly. No trauma to site. Patient tolerated procedure well. NOTE INSERTED BY FELISA BROWNING
--- NOTE | 2020-05-16 13:50 | NUR ---
IV removal IV DC'd with sterile technique, catheter fully intact. Pressure dressing applied to site. Patient tolerated procedure well. Discharged with aftercare instructions per MD. NOTE: REMOVED BY FELISA BROWNNIG
--- NOTE | 2020-05-16 13:51 | NUR ---
Discharge Instructions See e-MAR for any mediations given with this visit. Patient education given on disease process. Patient verbalized understanding. Previous labs reviewed. Patient discharged in stable condition with after care instructions and follow up appointment. NOTE LEVOFLOXACIN IV [id number] ADMIN BY FELISA BROWNING NS IV [id number] ADMIN BY FELISA BROWNING
[2020-05-16 15:44] LABS: Urine Blood Negative /uL (Negative); Urine Specific Gravity 1.017 (1.001-1.035)
== END | disposition home or self-care (01) ==
LOC: CHF HDHVI 12:02
PROVIDERS: ATTEND Internal Medicine
DX: N39.0 Urinary tract infection, site not specified (principal); E86.0 Dehydration; I13.0 Hypertensive heart and chronic kidney disease with heart failure and stage 1 through stage 4 chronic kidney disease, or unspecified chronic kidney disease; I50.32 Chronic diastolic (congestive) heart failure; N18.30 Chronic kidney disease, stage 3 unspecified; I25.10 Atherosclerotic heart disease of native coronary artery without angina pectoris; F41.9 Anxiety disorder, unspecified; E78.5 Hyperlipidemia, unspecified; E44.1 Mild protein-calorie malnutrition; M19.90 Unspecified osteoarthritis, unspecified site
CPT/HCPCS: 81003; 87086; 87088; 87186; 96361; 96365; G0463; J1956; J7050; 96368

== ENCOUNTER → 2020-05-29 | Outpatient (CLI) | payer MEDICARE, MEDICAID ==
[~2020-05-29] MED LIST changes: -SODIUM CHLORIDE 0.9% 250 ML IV ONE; -levoFLOXacin 500MG 100 ML IV ONE
[2020-05-29 15:55] LABS: Basophils # (auto) 0 10 ^3/uL (0-0.2); Basophils % (auto) 0.1 % (0.0-2.0); Eosinophils # (auto) 0.1 10 ^3/uL (0-0.8); Eosinophils % (auto) 0.5 % (0.0-7.0); Hematocrit 38.5 % (36.0-46.0); Hemoglobin 12.4 g/dL (12.2-16.2); Lymphocytes # (auto) 2.2 10 ^3/uL (0.4-5.4); Mean Corpuscular Hemoglobin 29.7 pg (28.0-32.0); Mean Corpuscular Hgb Conc. 32.1 g/dL (32.0-36.0); Mean Corpuscular Volume 92.5 fL (80.0-100.0); Monocytes # (auto) 0.7 10 ^3/uL (0-1.3); Monocytes % (auto) 4.3 % (0.0-12.0); Neutrophils % (auto) 81.1 % (37.0-80.0); Platelet Count (auto) 176 10^3/uL (140-450); Red Blood Cells 4.16 10^6/uL (4.0-5.20); Red Cell Distribution Width 19.7 % (11.8-14.3); White Blood Cell 16.1 10^3/uL (4.4-10.8)
[2020-05-29 16:05] LABS: Albumin 3.2 g/dL (3.4-5.0); Calcium 9.3 mg/dL (8.5-10.1); Potassium 4.7 mmol/L (3.5-5.1)
[2020-05-29 16:09] LABS: Bilirubin, Total 0.4 mg/dL (0.2-1.0); Total Protein 6.8 g/dL (6.4-8.2)
[2020-05-29 16:39] LABS: INR 0.97 (0.9-1.15); Partial Thromboplastin Time 20.2 sec (23.0-31.2)
== END | disposition home or self-care (01) ==
LOC: LAB 11:43
PROVIDERS: ATTEND Internal Medicine
DX: Z01.812 Encounter for preprocedural laboratory examination (principal); I50.32 Chronic diastolic (congestive) heart failure
CPT/HCPCS: 36415; 80053; 85025; 85610; 85730

== ENCOUNTER → 2020-05-30 | Outpatient (CLI) | payer MEDICARE, MEDICAID ==
[~2020-05-30] VITALS: Ht 30.5 cm; Wt 49.4 kg
[~2020-05-30] MED LIST changes: +SODIUM CHLORIDE 0.9% 1,000 ML IV ONE; +SODIUM CHLORIDE 0.9% 500 ML IV ONE
[2020-05-30 10:48] VITALS: BP 84/53
--- NOTE | 2020-05-30 10:48 | NUR ---
Patient into clinic for hydration following lab result on 05/29/20 bun 144. Patient brought in by son pushed on walker, son placed pt in chair, pt AAOx1 to self, breathing even and unlabored.
--- NOTE | 2020-05-30 11:02 | NUR ---
IV insertion IV access obtained, via clean sterile technique by inserting 22 gauge catheter at LAC after 1 attempt(s). IV secured properly. No trauma to site. Patient tolerated procedure well.
--- NOTE | 2020-05-30 11:04 | NUR ---
NS bolus started, will continue to monitor.
--- NOTE | 2020-05-30 12:53 | NUR ---
Spoke with Dr Jerome regarding critical lab BUN 143 result, verbal order received as entered, patient to follow up on Tuesday.
[2020-05-30 15:30] VITALS: BP 102/54
--- NOTE | 2020-05-30 15:30 | NUR ---
Discharge Instructions See e-MAR for any mediations given with this visit. Patient education given on disease process. Patient verbalized understanding. Previous labs reviewed. Patient discharged in stable condition with after care instructions and follow up appointment ON TUESDAY AT 1030. NOTE NS [id number] ADMIN BY ARTEMIO BROWNING
== END | disposition home or self-care (01) ==
LOC: CHF HDHVI 10:46
PROVIDERS: ATTEND Internal Medicine Cardiovascular Disease
DX: E86.0 Dehydration (principal); R94.4 Abnormal results of kidney function studies; I13.0 Hypertensive heart and chronic kidney disease with heart failure and stage 1 through stage 4 chronic kidney disease, or unspecified chronic kidney disease; N18.30 Chronic kidney disease, stage 3 unspecified; I50.32 Chronic diastolic (congestive) heart failure; I25.10 Atherosclerotic heart disease of native coronary artery without angina pectoris; F41.9 Anxiety disorder, unspecified; E78.5 Hyperlipidemia, unspecified; E44.1 Mild protein-calorie malnutrition; M19.90 Unspecified osteoarthritis, unspecified site
CPT/HCPCS: 36415; 82565; 84520; 96360; 96361; G0463; J7030; J7040

== ENCOUNTER → 2020-06-03 | Outpatient (CLI) | payer MEDICARE, MEDICAID ==
[~2020-06-03] MED LIST changes: -SODIUM CHLORIDE 0.9% 500 ML IV ONE
--- NOTE | 2020-06-03 10:00 | NUR ---
PT. TO CLINIC WITH SON FOR IV HYDRATION PER MD ORDER. AOX3, PWD. EXISTING HL ,LFT HAND SITE BENIGN, FLUSHES WITH 10CC NSS. ORDERS RECEIVED AND CARRIED OUT.
--- NOTE | 2020-06-03 10:10 | NUR ---
MEDS: .9NS STARTED AT 100CC/HR D/T HX OF POOR IV ACESS. SON REMAINS AT BEDSIDE.
--- NOTE | 2020-06-03 11:00 | NUR ---
MEDS: .9NS INCREASED TO 150CC/HR, IV SITE REMAINS BENIGN. PT. C/O SLIGHT BURNING SENSATION. WARM COMPRESS TO SITE.
--- NOTE | 2020-06-03 12:45 | NUR ---
PT. ASSIST. TO BR VIA WALKER WITH MA. VOIDED PALE CLEAR URINE AND MODERATE FORMED BM . JEREMY CARE DONE . PT. ASSISTED BACK TO CHAIR. 102/59, 69, 18, 95% RA SATS.
--- NOTE | 2020-06-03 13:15 | NUR ---
PT. DRANK 8 OZ. BOTTLE OF ENSURE WITHOUT DIFFICULTY. PT. NOW SITTOING UP LOOKNG AT MAGAZINE.
[2020-06-03 13:40] LABS: Basophils # (auto) 0 10 ^3/uL (0-0.2); Eosinophils # (auto) 0 10 ^3/uL (0-0.8); Hematocrit 31.9 % (36.0-46.0); Hemoglobin 10.5 g/dL (12.2-16.2); Lymphocytes # (auto) 1.2 10 ^3/uL (0.4-5.4); Lymphocytes % (auto) 14.2 % (10.0-50.0); Mean Corpuscular Hemoglobin 29.8 pg (28.0-32.0); Mean Corpuscular Hgb Conc. 32.9 g/dL (32.0-36.0); Mean Corpuscular Volume 90.4 fL (80.0-100.0); Monocytes # (auto) 0.2 10 ^3/uL (0-1.3); Monocytes % (auto) 2.3 % (0.0-12.0); Neutrophils # (auto) 6.7 10 ^3/uL (1.6-8.6); Neutrophils % (auto) 83.5 % (37.0-80.0); Platelet Count (auto) 157 10^3/uL (140-450); Red Blood Cells 3.53 10^6/uL (4.0-5.20); Red Cell Distribution Width 19.9 % (11.8-14.3); White Blood Cell 8.1 10^3/uL (4.4-10.8)
[2020-06-03 13:49] LABS: BUN/Creatinine Ratio 41.6; Calcium 8.7 mg/dL (8.5-10.1); Potassium 4.9 mmol/L (3.5-5.1)
--- NOTE | 2020-06-03 14:00 | NUR ---
DR. SELLERS AT CHAIRSIDE FOR EVAL. PENDING LAB RESULTS
--- NOTE | 2020-06-03 15:00 | NUR ---
PT. TO AND FROM BR FOR SECOND TIME FOR VOIDING. AMBULATED WITHOUT ASSIST. 118/62,80, 18
--- NOTE | 2020-06-03 15:30 | NUR ---
DR. SELLERS AT BEDSIDE FOR EXAM. LAB RESULTS TO MD, WITH CONTINUED IMPROVEMENT OF BUN/CREAT. WITH IV FLUIDS.
--- NOTE | 2020-06-03 15:45 | NUR ---
NUTRITION: PT. ATE YOGURT OFFERED TO HER. SON BACK AT BEDSIDE. SON GIVE SAMPLES OF ENSURE FOR PT. TO HAVE BID PER MD ORDER.
--- NOTE | 2020-06-03 16:15 | NUR ---
IV removal IV DC'd with sterile technique, catheter fully intact. Pressure dressing applied to site. Patient tolerated procedure well. Discharged with aftercare instructions per MD. NOTE:
[2020-06-03 16:30] VITALS: BP 116/54
--- NOTE | 2020-06-03 16:30 | NUR ---
Discharge Instructions See e-MAR for any mediations given with this visit. Patient education given on disease process. Patient verbalized understanding. Previous labs reviewed. Patient discharged in stable condition with after care instructions and follow up appointment. PT. TO RTC ON THURS. AM PER MD ORDER FOR EVAL.AND POSSIBLE IV HYDRATION. SON WILL GIVE THIS RN A CALL TOMORROW ON PT. UPDATED. PT. AMBULATED TO POV WITH MINIMAL ASSIST. FROM SON.
== END | disposition home or self-care (01) ==
LOC: CHF HDHVI 10:12
PROVIDERS: ATTEND Internal Medicine
DX: E86.0 Dehydration (principal); N17.9 Acute kidney failure, unspecified; N39.0 Urinary tract infection, site not specified; I13.0 Hypertensive heart and chronic kidney disease with heart failure and stage 1 through stage 4 chronic kidney disease, or unspecified chronic kidney disease; I50.32 Chronic diastolic (congestive) heart failure; N18.30 Chronic kidney disease, stage 3 unspecified; I25.10 Atherosclerotic heart disease of native coronary artery without angina pectoris; D64.9 Anemia, unspecified; F41.9 Anxiety disorder, unspecified; E78.5 Hyperlipidemia, unspecified; E44.1 Mild protein-calorie malnutrition; M19.90 Unspecified osteoarthritis, unspecified site
CPT/HCPCS: 36415; 80048; 85025; 96360; 96361; G0463; J7030; 96366

== ENCOUNTER → 2020-06-05 | Outpatient (CLI) | payer MEDICARE, MEDICAID ==
[2020-06-05 11:05] VITALS: BP 110/54
--- NOTE | 2020-06-05 11:05 | NUR ---
CLINIC PT ARRIVED TO THE CLINIC WITH ORDERS FOR IV HYDRATION AND LABS, A/OX3, AMBULATORY WITH WALKER, BREATHING IS EVEN AND UNLABORED. PT STATED THAT SHE IS FEELING A LIL BETTER TODAY.
--- NOTE | 2020-06-05 11:30 | NUR ---
IV insertion IV access obtained, via clean sterile technique by inserting 24 gauge catheter at LW after 1 attempt(s). IV secured properly. No trauma to site. Patient tolerated procedure well. NOTE INSERTED BY MIREYA BROWNING
--- NOTE | 2020-06-05 11:35 | NUR ---
Clinic Provider Clinic Provider into see pt orders received and carried out. SEE EMAR
--- NOTE | 2020-06-05 12:30 | NUR ---
pt. sleeping, iv site benign. pending labs.
--- NOTE | 2020-06-05 13:30 | NUR ---
PT. TO AND FROM BATHROOM WITH WALKER AND WITHOUT ASSIST.
--- NOTE | 2020-06-05 14:30 | NUR ---
LABS DRAWN AFTER 500CC .9NS INFUSED. 122/70,79, 18. PT. WITH NO C/O. TAKING PO FLUIDS FOR NUTRITION.
--- NOTE | 2020-06-05 15:40 | NUR ---
PT. TO AND FROM BATHROOM WITH MINIMAL ASSIST. 132/76, 82, 18
--- NOTE | 2020-06-05 16:15 | NUR ---
EXAM: DR. SELLERS AT BEDSIDE WITH PT. AND SON. LABS REVIEWED WITH MD WITH CONTINUED IMPROVEMENT OF RENAL FUNCTION. POTASSIUM LEVEL ADDED ON PER MD ORDER.
--- NOTE | 2020-06-05 16:45 | NUR ---
IV removal IV DC'd with sterile technique, catheter fully intact. Pressure dressing applied to site. Patient tolerated procedure well. Discharged with aftercare instructions per MD. NOTE: PT.AND SON INSTRUCTED HAVE PT. TAKE AT LEAST ONE ENSURE PROTEIN DRINK PER DAY. SAMPLES GIVEN PER MD ORDER.
[2020-06-05 16:50] VITALS: BP 147/73
--- NOTE | 2020-06-05 16:50 | NUR ---
Discharge Instructions See e-MAR for any mediations given with this visit. Patient education given on disease process. Patient verbalized understanding. Previous labs reviewed. Patient discharged in stable condition with after care instructions and follow up appointment. DC'D STABLE WITH SON AND TO RTC NEXT TUESDAY PER MD ORDER.
[2020-06-05 17:13] LABS: Potassium 4.8 mmol/L (3.5-5.1)
== END | disposition home or self-care (01) ==
LOC: CHF HDHVI 11:04
PROVIDERS: ATTEND Internal Medicine Cardiovascular Disease
DX: E86.0 Dehydration (principal); R94.4 Abnormal results of kidney function studies; R53.83 Other fatigue; I13.0 Hypertensive heart and chronic kidney disease with heart failure and stage 1 through stage 4 chronic kidney disease, or unspecified chronic kidney disease; I25.10 Atherosclerotic heart disease of native coronary artery without angina pectoris; I50.32 Chronic diastolic (congestive) heart failure; N18.30 Chronic kidney disease, stage 3 unspecified; F41.9 Anxiety disorder, unspecified; E78.5 Hyperlipidemia, unspecified; E44.1 Mild protein-calorie malnutrition; M19.90 Unspecified osteoarthritis, unspecified site
CPT/HCPCS: 36415; 82565; 84132; 84520; 96360; 96361; G0463; J7030

== ENCOUNTER 2020-06-21 10:14 | Inpatient (IN) | payer MEDICARE, MEDICAID ==
[~2020-06-21] VITALS: Ht 165.1 cm; Wt 53.3 kg
[~2020-06-21 10:14] MED LIST changes: -SODIUM CHLORIDE 0.9% 1,000 ML IV ONE
[2020-06-21 14:01] LABS: Basophils # (auto) 0 10 ^3/uL (0-0.2); Basophils % (auto) 0.1 % (0.0-2.0); Eosinophils # (auto) 0 10 ^3/uL (0-0.8); Eosinophils % (auto) 0.1 % (0.0-7.0); Hemoglobin 11.2 g/dL (12.2-16.2); Lymphocytes # (auto) 1.3 10 ^3/uL (0.4-5.4); Lymphocytes % (auto) 17.8 % (10.0-50.0); Mean Corpuscular Hemoglobin 31.1 pg (28.0-32.0); Mean Corpuscular Volume 94.1 fL (80.0-100.0); Monocytes # (auto) 0.3 10 ^3/uL (0-1.3); Monocytes % (auto) 3.5 % (0.0-12.0); Neutrophils # (auto) 5.6 10 ^3/uL (1.6-8.6); Neutrophils % (auto) 78.5 % (37.0-80.0); Platelet Count (auto) 159 10^3/uL (140-450); Red Blood Cells 3.61 10^6/uL (4.0-5.20); White Blood Cell 7.2 10^3/uL (4.4-10.8)
[2020-06-21 14:01] LABS: Urine Bacteria FEW /hpf (None Seen); Urine Blood Negative /uL (Negative); Urine Specific Gravity 1.003 (1.001-1.035); Urine WBC <1 /hpf (0 - 5)
[2020-06-21 14:05] LABS: Red Cell Distribution Width 24.5 % (11.8-14.3)
[2020-06-21 14:12] LABS: Potassium 3.6 mmol/L (3.5-5.1)
[2020-06-21 14:19] LABS: Albumin 2.8 g/dL (3.4-5.0); BUN/Creatinine Ratio 28.7; Bilirubin, Total 0.4 mg/dL (0.2-1.0); Calcium 8.1 mg/dL (8.5-10.1); Total Protein 5.8 g/dL (6.4-8.2)
[2020-06-21] MEDS ORDERED: SODIUM CHLORIDE 0.9% 1,000 ML IV ONE (16:00)
[2020-06-21] MEDS ORDERED: MORPHINE SULF INJ 2 MG/ML SYRINGE 1ML IV PRN (20:15)
[2020-06-21] MEDS ORDERED: NITROGLYCERIN 0.4 MG SL TAB SL PRN (20:15)
[2020-06-21] MEDS ORDERED: cloNIDine HCL 0.1 MG TAB PO PRN (20:15)
[2020-06-21] MEDS: SODIUM CHLORIDE 0.9% 1,000 ML IV SCH (22:30)
[2020-06-21] MEDS: ONDANSETRON ODT 4 MG TAB PO SCH (22:45)
[2020-06-22] MEDS: LISINOPRIL 20 MG TAB PO SCH (09:03)
[2020-06-22] MEDS: SUCRALFATE 1 GM TAB PO SCH (09:03)
[2020-06-22] MEDS: METOPROLOL SUCCINATE XL 50 MG TAB PO SCH (09:03)
[2020-06-22] MEDS: cefTRIAXone 1GM/50ML D5W 50 ML IV SCH (09:03)
[2020-06-22] MEDS: PANTOPRAZOLE 40 MG TAB PO SCH (09:03)
[2020-06-22] MEDS: ASPirin 81 mg TAB PO SCH (09:03)
[2020-06-22] MEDS: ONDANSETRON ODT 4 MG TAB PO SCH ×2 (09:04→22:01)
[2020-06-23] MEDS: SODIUM CHLORIDE 0.9% 1,000 ML IV SCH ×3 (08:23→14:00)
[2020-06-23] MEDS: METOPROLOL SUCCINATE XL 50 MG TAB PO SCH (10:52)
[2020-06-23] MEDS: ASPirin 81 mg TAB PO SCH (10:52)
[2020-06-23] MEDS: PANTOPRAZOLE 40 MG TAB PO SCH (10:52)
[2020-06-23] MEDS: SUCRALFATE 1 GM TAB PO SCH (10:52)
[2020-06-23] MEDS: LISINOPRIL 20 MG TAB PO SCH (10:53)
[2020-06-23] MEDS: ONDANSETRON ODT 4 MG TAB PO SCH ×2 (10:54→22:40)
[2020-06-23] MEDS ORDERED: LORazepam 2MG/ML-1ML VIAL ONE (13:48)
[2020-06-23] MEDS: cefTRIAXone 1GM/50ML D5W 50 ML IV SCH (14:00)
[2020-06-23] MEDS ORDERED: LORazepam 2MG/ML-1ML VIAL IV ONE (14:15)
[2020-06-23] MEDS ORDERED: DIGOXIN (250MCG/ML) 2 ML AMPULE ONE (20:54)
[2020-06-23] MEDS ORDERED: DIGOXIN (250MCG/ML) 2 ML AMPULE IV ONE ×2 (21:00→21:30)
[2020-06-23 22:30] VITALS: BP 154/70
--- NOTE | 2020-06-23 22:50 | NUR ---
Patient is tachycardic and attempting to get out of bed. HR ranging from 130-160 as high as the 180s. At bedside taking vitals and trying to calm patient. BP 154/70 HR 150 O2 89% RR 20. Patient is possibly agitated by A bed who is also confused and yelling at the ACCOUNTING GENERALIST and her nurse.
--- NOTE | 2020-06-23 22:54 | NUR ---
Put patient on 2L NC d/t patient sat'ing at 89%. Reassessed O2 patient sat'ing at 100%
--- NOTE | 2020-06-23 23:00 | NUR ---
Paged Dr. Jerome to alarming HR. HR ranging from 130s-160s as high as 180s.
[2020-06-23] MEDS ORDERED: SOTALOL HCL 80 MG TAB PO STA (23:11)
--- NOTE | 2020-06-23 23:15 | NUR ---
Dr. Jerome called back and placed an order for betapace 80mg PO now and betapace 40mg PO BID
[2020-06-23 23:23] VITALS: BP 154/70
[2020-06-23 23:26] LABS: Basophils # (auto) 0.1 10 ^3/uL (0-0.2); Basophils % (auto) 0.7 % (0.0-2.0); Eosinophils # (auto) 0.1 10 ^3/uL (0-0.8); Hemoglobin 12.3 g/dL (12.2-16.2); Lymphocytes # (auto) 2.7 10 ^3/uL (0.4-5.4); Lymphocytes % (auto) 36.3 % (10.0-50.0); Mean Corpuscular Hgb Conc. 31.6 g/dL (32.0-36.0); Mean Corpuscular Volume 98.2 fL (80.0-100.0); Monocytes # (auto) 0.3 10 ^3/uL (0-1.3); Monocytes % (auto) 4.6 % (0.0-12.0); Neutrophils # (auto) 4.1 10 ^3/uL (1.6-8.6); Neutrophils % (auto) 56.4 % (37.0-80.0); Nucleated Red Blood Cells % 0.2 %; Platelet Count (auto) 153 10^3/uL (140-450); Red Blood Cells 3.97 10^6/uL (4.0-5.20); White Blood Cell 7.3 10^3/uL (4.4-10.8)
[2020-06-23 23:31] LABS: Red Cell Distribution Width 25.2 % (11.8-14.3)
--- NOTE | 2020-06-23 23:40 | NUR ---
Betapace 80mg PO given will reassess HR in an hour
[2020-06-23 23:46] LABS: Albumin 2.7 g/dL (3.4-5.0); Calcium 8.3 mg/dL (8.5-10.1); Potassium 3.8 mmol/L (3.5-5.1)
[2020-06-23 23:48] LABS: Bilirubin, Total 0.5 mg/dL (0.2-1.0); Total Protein 6.1 g/dL (6.4-8.2)
--- NOTE | 2020-06-23 23:50 | NUR ---
Received patient from ER. Patient came with chaidez. She is severely confused, only oriented to name. No sx of SOB/pain. Sitter is at bedside. Bed locked and in lowest position with call light in reach. Addendum: 06/24/20 at 0040 by MARSHA RUFF RN RN Received patient around 2250
--- NOTE | 2020-06-24 00:48 | NUR ---
HR currently in the 100s
[2020-06-24] MEDS: SODIUM CHLORIDE 0.9% 1,000 ML IV SCH ×2 (01:35→17:27)
[2020-06-24 05:06] VITALS: BP 131/54
--- NOTE | 2020-06-24 07:30 | NUR ---
Opening Shift Note Report received and Assumed care of patient,awake, alert,disoriented. No S/S of distress/SOB or pain. Instructed on POC,call light within reach,environmental safety specialist at bedside,patient reminded instructed to call for assistance,verbalized understanding,will continue to monitor for changes Q1hr and PRN.
[2020-06-24 08:00] VITALS: BP 129/63
[2020-06-24 09:17] VITALS: BP 145/71
[2020-06-24] MEDS: ONDANSETRON ODT 4 MG TAB PO SCH ×2 (10:52→21:51)
[2020-06-24] MEDS: CLOPIDOGREL BISULFATE 75 MG TAB PO SCH (10:52)
[2020-06-24] MEDS: PANTOPRAZOLE 40 MG TAB PO SCH (10:53)
[2020-06-24] MEDS: SUCRALFATE 1 GM TAB PO SCH (10:53)
[2020-06-24] MEDS: ASPirin 81 mg TAB PO SCH (10:53)
[2020-06-24] MEDS: METOPROLOL SUCCINATE XL 50 MG TAB PO SCH (10:54)
[2020-06-24] MEDS: LISINOPRIL 20 MG TAB PO SCH (10:54)
[2020-06-24] MEDS: cefTRIAXone 1GM/50ML D5W 50 ML IV SCH (10:55)
--- NOTE | 2020-06-24 11:15 | NUR ---
RETURN CALL FOR SON VICTORIANO LARRY (PASS WORD VERIFIED) UPDATED PLAN OF CARE THEN CONNECTED CALL TO PATIENT
--- NOTE | 2020-06-24 12:44 | NUR ---
Nutrition Assessment Est energy needs 6412-9516 kcal (30-35 kcal/kg BW 50kg) est protein needs 40-50g (0.8-1g/kg BW 50kg) Will monitor and reassess prn. Addendum: 06/24/20 at [address] Amended: Links added.
[2020-06-24 13:00] VITALS: BP 142/74
[2020-06-24] MEDS: SOTALOL HCL 80 MG TAB PO SCH ×2 (14:13→21:51)
--- NOTE | 2020-06-24 16:39 | NUR ---
Pt is a confused female that was residing with her 2 sons, Patricio and Artemio, prior to admission. Pt uses a wheelchair and fww in the home. Per son Artemio, they assist pt with meals, ADLs, and transportation. Pt is also being seen by [facility] and son states she has advance directives already in place with a medical poa. Advised son that copy needs to be provided to hospital. Artemio states he wants pt to return home and he, or brother, will transport her home upon discharge. Pt will need resumption orders for HH when discharged. Addendum: 06/24/20 at 1639 by SCOTTY MACKEY Amended: Links added.
[2020-06-24 17:01] VITALS: BP 150/75
[2020-06-24 22:00] VITALS: BP 156/75
[2020-06-25 05:00] VITALS: BP 141/82
[2020-06-25] MEDS: SODIUM CHLORIDE 0.9% 1,000 ML IV SCH (05:49)
--- NOTE | 2020-06-25 07:30 | NUR ---
Opening Shift Note Report received and Assumed care of patient,awake,alert and disoriented. No S/S of distress/SOB or pain. Instructed on POC,call light within reach,food safety director at bedside,patient reminded instructed to call for assistance,verbalized understanding,will continue to monitor for changes Q1hr and PRN.
[2020-06-25 09:00] VITALS: BP 134/68
--- NOTE | 2020-06-25 09:45 | NUR ---
MD VISIT DR. RINALDI HERE TO SEE AND EXAMINED PATIENT,RECEIVED ORDER TO DISCONTINUE WALDRON CATHETER, DISCHARGE PATIENT HOME WITH HOME HEALTH AND TO WRITE ORDER,
[2020-06-25] MEDS: SUCRALFATE 1 GM TAB PO SCH (10:33)
[2020-06-25] MEDS: cefTRIAXone 1GM/50ML D5W 50 ML IV SCH (10:33)
[2020-06-25] MEDS: ASPirin 81 mg TAB PO SCH (10:33)
[2020-06-25] MEDS: METOPROLOL SUCCINATE XL 50 MG TAB PO SCH (10:34)
[2020-06-25] MEDS: LISINOPRIL 20 MG TAB PO SCH (10:34)
[2020-06-25] MEDS: CLOPIDOGREL BISULFATE 75 MG TAB PO SCH (10:35)
[2020-06-25] MEDS: ONDANSETRON ODT 4 MG TAB PO SCH (10:35)
[2020-06-25] MEDS: SOTALOL HCL 80 MG TAB PO SCH (10:36)
[2020-06-25] MEDS: PANTOPRAZOLE 40 MG TAB PO SCH (10:36)
--- NOTE | 2020-06-25 11:30 | NUR ---
OOB UP IN [facility] HAD A LOOSE BM,A.M. CARE DONE BY CESAR
--- NOTE | 2020-06-25 12:00 | NUR ---
WALDRON CATHETER REMOVED AND DISCONTINUED
[2020-06-25 13:00] VITALS: BP 128/73
--- NOTE | 2020-06-25 13:29 | NUR ---
CALLED SON VICTORIANO AT [phone], NO ANSWER ,LEFT MESSAGE TO CALL RN BACK
--- NOTE | 2020-06-25 13:40 | NUR ---
Reassessment Patient has discharge for home with [facility], SAJAN spoke with Debbi from [facility], she stated that patient was accepted for services. Services for patient will take place 24 -48 hours post discharge. SAJAN has informed Nyla BROWNING of patient acceptance to [facility] services for post discharge.
--- NOTE | 2020-06-25 15:25 | NUR ---
PATIENT OOB ASSISTED TO [facility],VOIDED WITHOUT DIFFICULTY
--- NOTE | 2020-06-25 15:28 | NUR ---
CALLED MARIELLA PASTRANA(PASS WORD VERIFIED) INFORMED RE DISCHARGE OF PATIENT,STATED WILL BE HER IN AN HOUR TO CURRICULUM ASSISTANT PATIENT
[2020-06-25 15:30] VITALS: BP 128/73
--- NOTE | 2020-06-25 16:30 | NUR ---
Discharge instructions given to cleo Ulloa,as ordered. Encourage to follow up with PMD as instructed. All questions and concerns addressed. Patient verbalized understanding. Medication reconciliation form completed and copy given to patient. IV removed with catheter intact, pressure dressing applied, Telemetry unit returned to ICU. Patient taken to vehicle via wheelchair with all personal belongings, accompanied by staff,picked up by family member at the front lobby. No distress noted at time of departure.
== END 2020-06-25 16:30 | disposition home health service (06) | DRG 70 ==
LOC: EDBD 10:14 → ER 10:14 → TELE 20:15 → TELE-WESTW 06-23 22:06
PROVIDERS: ADMIT Internal Medicine Cardiovascular Disease; ATTEND Internal Medicine Cardiovascular Disease
DX: G93.41 Metabolic encephalopathy (principal); I50.33 Acute on chronic diastolic (congestive) heart failure; E87.3 Alkalosis; N17.9 Acute kidney failure, unspecified; J44.9 Chronic obstructive pulmonary disease, unspecified; D64.9 Anemia, unspecified; Z20.828 Contact with and (suspected) exposure to other viral communicable diseases; D75.89 Other specified diseases of blood and blood-forming organs; E78.5 Hyperlipidemia, unspecified; F41.9 Anxiety disorder, unspecified; I11.0 Hypertensive heart disease with heart failure; I25.10 Atherosclerotic heart disease of native coronary artery without angina pectoris; I48.91 Unspecified atrial fibrillation; F09 Unspecified mental disorder due to known physiological condition; I73.9 Peripheral vascular disease, unspecified; K21.9 Gastro-esophageal reflux disease without esophagitis; R79.89 Other specified abnormal findings of blood chemistry; M19.90 Unspecified osteoarthritis, unspecified site; Z86.19 Personal history of other infectious and parasitic diseases; Z79.899 Other long term (current) drug therapy; Z95.5 Presence of coronary angioplasty implant and graft
CPT/HCPCS: 36415; 36600; 70450; 71045; 80053; 81001; 82805; 84484; 85025; 87081; 87426; G0378; J0696; Q0162

== ENCOUNTER 2020-07-15 13:37 | Inpatient (IN) | payer MEDICARE, MEDICAID ==
[~2020-07-15] VITALS: Ht 160 cm; Wt 69.0 kg
[2020-07-15] MEDS ORDERED: DexAMETHasone SOD PHOS 10MG/1ML VIAL INJ IV ONE (13:45)
[2020-07-15] MEDS ORDERED: cefTRIAXone 1GM/50ML D5W 50 ML IV ONE (13:45)
[2020-07-15] MEDS ORDERED: AMIODARONE 450mg/250ml AE 250 ML IV SCH ×2 (15:45→21:45)
[2020-07-15] MEDS ORDERED: AMIODARONE HCL 150 MG in D5W 5% 100 ML IV ONE (15:45)
[2020-07-15 15:57] LABS: Basophils # (auto) 0 10 ^3/uL (0-0.2); Basophils % (auto) 0.1 % (0.0-2.0); Eosinophils # (auto) 0 10 ^3/uL (0-0.8); Hematocrit 34.5 % (36.0-46.0); Hemoglobin 11.6 g/dL (12.2-16.2); Lymphocytes % (auto) 9.8 % (10.0-50.0); Mean Corpuscular Hemoglobin 31.8 pg (28.0-32.0); Mean Corpuscular Hgb Conc. 33.6 g/dL (32.0-36.0); Mean Corpuscular Volume 94.6 fL (80.0-100.0); Monocytes # (auto) 0.4 10 ^3/uL (0-1.3); Monocytes % (auto) 4.4 % (0.0-12.0); Neutrophils # (auto) 8.6 10 ^3/uL (1.6-8.6); Neutrophils % (auto) 85.7 % (37.0-80.0); Nucleated Red Blood Cells % 0.1 %; Platelet Count (auto) 371 10^3/uL (140-450); Red Blood Cells 3.64 10^6/uL (4.0-5.20)
[2020-07-15 16:11] LABS: Red Cell Distribution Width 20.7 % (11.8-14.3)
[2020-07-15 16:27] LABS: Calcium 8.3 mg/dL (8.5-10.1); Potassium 3.3 mmol/L (3.5-5.1)
[2020-07-15 16:29] LABS: Lactic Acid w/Reflex 2.4 mmol/L (0.4-2.0)
[2020-07-15 16:37] LABS: Albumin 2.3 g/dL (3.4-5.0); BUN/Creatinine Ratio 22.1; Bilirubin, Total 0.9 mg/dL (0.2-1.0); CRP High Sensitivity 4.34 mg/dL (< 0.3); Total Protein 6.6 g/dL (6.4-8.2)
[2020-07-15 16:38] LABS: Partial Thromboplastin Time 21.1 sec (23.0-31.2)
[2020-07-15] MEDS ORDERED: NITROGLYCERIN 0.4 MG SL TAB SL PRN ×2 (17:45→20:30)
[2020-07-15] MEDS ORDERED: ACETAMINOPHEN 325 MG TAB PO PRN (17:45)
[2020-07-15] MEDS ORDERED: ENOXAPARIN SOD 100 MG/1 ML SYRINGE SC ONE (17:45)
[2020-07-15] MEDS ORDERED: MORPHINE SULF INJ 2 MG/ML SYRINGE 1ML IV PRN ×3 (17:45→20:30)
[2020-07-15] MEDS ORDERED: ENOXAPARIN SOD 100 MG/1 ML SYRINGE SC SCH ×2 (18:00)
[2020-07-15 18:35] LABS: Urine Amorphous Crystal FEW /hpf (None Seen); Urine Bacteria MANY /hpf (None Seen); Urine Blood Negative /uL (Negative); Urine Mucus FEW (None Seen); Urine Specific Gravity 1.016 (1.001-1.035); Urine WBC 12 /hpf (0 - 5)
[2020-07-15] MEDS ORDERED: ACETAMINOPHEN 650 mg PER 20.3 mL UD ONE (18:59)
[2020-07-15] MEDS ORDERED: LACTATED RINGER'S 1,000 ML IV ONE (19:00)
[2020-07-15] MEDS: dilTIAZem 125mg/125ml BAG KIT 100 ML IV SCH (19:14)
[2020-07-15] MEDS: ENOXAPARIN SOD 60 MG/0.6 ML SYRINGE SC SCH (19:14)
[2020-07-15] MEDS ORDERED: CEFEPIME 1 GM in SODIUM CHL 0.9% 50 ML IV ONE (20:00)
[2020-07-15] MEDS ORDERED: POTASSIUM CHL 20MEQ/100ML 100 ML IV ONE (20:00)
[2020-07-15] MEDS ORDERED: DOCUSATE SOD 100 MG CAP PO PRN (20:30)
[2020-07-15] MEDS ORDERED: ALBUTEROL SULF HFA 90MCG INH 200DOSE IN PRN (20:30)
[2020-07-15] MEDS ORDERED: REMDESIVIR PER PHARMACY 0 ML IV SCH (20:30)
[2020-07-15] MEDS ORDERED: HYDROcodone-ACET 5/325MG TAB PO PRN (20:30)
[2020-07-15] MEDS ORDERED: ALUM & MAG HYDROX-SIMETH LIQ(MAALOX) 30 ML PO PRN (20:30)
[2020-07-15] MEDS ORDERED: ACETAMINOPHEN 500 MG TAB PO PRN (20:30)
[2020-07-15] MEDS ORDERED: ONDANSETRON HCL 4 MG/2 ML VIAL IV PRN (20:30)
[2020-07-15] MEDS ORDERED: SUCRALFATE 1 GM/10 ML ORAL SUSP PO ONE (20:30)
[2020-07-15] MEDS ORDERED: LORazepam 0.5 MG TAB PO PRN (20:30)
[2020-07-15] MEDS ORDERED: METOPROLOL SUCCINATE XL 50 MG TAB PO ONE (20:30)
[2020-07-15] MEDS: ZINC SULFATE 220mg CAP or TAB PO SCH (20:48)
[2020-07-15] MEDS: ASCORBIC ACID 1,000 MG TAB PO SCH (20:48)
[2020-07-15] MEDS: CHOLECALCIFEROL (VITD3) 2,000 UNIT CAP PO SCH (20:51)
[2020-07-15] MEDS: BUDESONIDE (INHALATION) 180 MCG IH IN SCH (22:00)
[2020-07-15] MEDS: SUCRALFATE 1 GM/10 ML ORAL SUSP PO SCH (22:00)
[2020-07-15] MEDS: ATORVASTATIN 20 MG TAB PO SCH (22:00)
[2020-07-15] MEDS: TOPIRAMATE 100 MG TAB PO SCH (22:00)
[2020-07-15] MEDS: busPIRone HCL 10 MG TAB PO SCH (22:00)
[2020-07-16] MEDS: CEFEPIME 1 GM in SODIUM CHL 0.9% 50 ML IV SCH ×2 (00:46→17:22)
[2020-07-16] MEDS ORDERED: METOPROLOL SUCCINATE XL 50 MG TAB PO ONE (03:00)
[2020-07-16] MEDS: SODIUM CHLORIDE 0.9% 1,000 ML IV SCH ×2 (03:17→13:23)
[2020-07-16 04:30] LABS: Basophils # (auto) 0.1 10 ^3/uL (0-0.2); Basophils % (auto) 0.6 % (0.0-2.0); Eosinophils # (auto) 0 10 ^3/uL (0-0.8); Eosinophils % (auto) 0.1 % (0.0-7.0); Hematocrit 31.9 % (36.0-46.0); Hemoglobin 10.7 g/dL (12.2-16.2); Lymphocytes # (auto) 1.4 10 ^3/uL (0.4-5.4); Lymphocytes % (auto) 13.2 % (10.0-50.0); Mean Corpuscular Hemoglobin 32.1 pg (28.0-32.0); Mean Corpuscular Hgb Conc. 33.4 g/dL (32.0-36.0); Monocytes # (auto) 0.3 10 ^3/uL (0-1.3); Monocytes % (auto) 3.2 % (0.0-12.0); Neutrophils # (auto) 8.8 10 ^3/uL (1.6-8.6); Neutrophils % (auto) 82.9 % (37.0-80.0); Nucleated Red Blood Cells % 0.1 %; Platelet Count (auto) 328 10^3/uL (140-450); Red Blood Cells 3.32 10^6/uL (4.0-5.20); White Blood Cell 10.6 10^3/uL (4.4-10.8)
[2020-07-16 04:43] LABS: Red Cell Distribution Width 20.9 % (11.8-14.3)
[2020-07-16 04:58] LABS: Albumin 2.1 g/dL (3.4-5.0); Calcium 8.2 mg/dL (8.5-10.1); Potassium 4.6 mmol/L (3.5-5.1)
[2020-07-16 05:00] LABS: BUN/Creatinine Ratio 23.8
[2020-07-16 05:03] LABS: Bilirubin, Total 0.7 mg/dL (0.2-1.0); Total Protein 5.5 g/dL (6.4-8.2)
[2020-07-16] MEDS: FAMOTIDINE (10MG/ML) 2ML VL IV SCH ×2 (05:16→10:19)
[2020-07-16] MEDS: BUDESONIDE (INHALATION) 180 MCG IH IN SCH ×2 (10:00→22:00)
[2020-07-16] MEDS: DexAMETHasone SOD PHOS 10MG/1ML VIAL INJ IV SCH (10:19)
[2020-07-16] MEDS: busPIRone HCL 10 MG TAB PO SCH ×2 (10:20→20:30)
[2020-07-16] MEDS: ZINC SULFATE 220mg CAP or TAB PO SCH (10:20)
[2020-07-16] MEDS: METOPROLOL SUCCINATE XL 50 MG TAB PO SCH (10:20)
[2020-07-16] MEDS: ASPirin 81 mg TAB PO SCH (10:20)
[2020-07-16] MEDS: TOPIRAMATE 100 MG TAB PO SCH ×2 (10:20→22:00)
[2020-07-16] MEDS: ASCORBIC ACID 1,000 MG TAB PO SCH (10:21)
[2020-07-16] MEDS: CHOLECALCIFEROL (VITD3) 2,000 UNIT CAP PO SCH (11:00)
[2020-07-16] MEDS: SUCRALFATE 1 GM/10 ML ORAL SUSP PO SCH ×3 (11:00→22:00)
[2020-07-16] MEDS: dilTIAZem 125mg/125ml BAG KIT 100 ML IV SCH (11:55)
[2020-07-16] MEDS ORDERED: VANCOMYCIN 1GM/250ML 250 ML IV ONE (14:45)
[2020-07-16] MEDS ORDERED: DIGOXIN (250MCG/ML) 2 ML AMPULE IV ONE ×2 (14:45→15:15)
[2020-07-16] MEDS ORDERED: SODIUM CHLORIDE 0.9% 1,000 ML IV ONE (16:15)
[2020-07-16] MEDS: ENOXAPARIN SOD 60 MG/0.6 ML SYRINGE SC SCH (17:25)
[2020-07-16] MEDS ORDERED: REMDESIVIR PER PHARMACY 0 ML IV SCH (19:00)
[2020-07-16 19:56] LABS: Potassium 4.4 mmol/L (3.5-5.1)
[2020-07-16 20:04] LABS: Albumin 1.9 g/dL (3.4-5.0); BUN/Creatinine Ratio 23.7; Bilirubin, Total 0.7 mg/dL (0.2-1.0); Calcium 8.2 mg/dL (8.5-10.1)
[2020-07-16] MEDS: ATORVASTATIN 20 MG TAB PO SCH (22:00)
[2020-07-17] MEDS: SODIUM CHLORIDE 0.9% 1,000 ML IV SCH ×2 (05:50→21:34)
[2020-07-17] MEDS: CHOLECALCIFEROL (VITD3) 2,000 UNIT CAP PO SCH (09:59)
[2020-07-17] MEDS: ASCORBIC ACID 1,000 MG TAB PO SCH (09:59)
[2020-07-17] MEDS: FAMOTIDINE (10MG/ML) 2ML VL IV SCH (09:59)
[2020-07-17] MEDS: SUCRALFATE 1 GM/10 ML ORAL SUSP PO SCH ×4 (09:59→21:33)
[2020-07-17] MEDS: dilTIAZem 125mg/125ml BAG KIT 100 ML IV SCH (09:59)
[2020-07-17] MEDS: METOPROLOL SUCCINATE XL 50 MG TAB PO SCH (09:59)
[2020-07-17] MEDS: ASPirin 81 mg TAB PO SCH (09:59)
[2020-07-17] MEDS: ZINC SULFATE 220mg CAP or TAB PO SCH (09:59)
[2020-07-17] MEDS: TOPIRAMATE 100 MG TAB PO SCH ×2 (09:59→21:33)
[2020-07-17] MEDS: DexAMETHasone SOD PHOS 10MG/1ML VIAL INJ IV SCH (09:59)
[2020-07-17] MEDS: busPIRone HCL 10 MG TAB PO SCH ×2 (13:13→21:33)
[2020-07-17] MEDS: ENOXAPARIN SOD 60 MG/0.6 ML SYRINGE SC SCH (17:28)
[2020-07-17] MEDS: CEFEPIME 1 GM in SODIUM CHL 0.9% 50 ML IV SCH (17:28)
[2020-07-17] MEDS: BUDESONIDE (INHALATION) 0.5 MG/2 ML NEB NEB SCH (19:04)
[2020-07-17] MEDS: ALBUTEROL SULF 2.5 MG/0.5ML(0.5%) NEB SOLN NEB PRN (20:34)
[2020-07-17] MEDS: ATORVASTATIN 20 MG TAB PO SCH (21:33)
[2020-07-18] MEDS: dilTIAZem 125mg/125ml BAG KIT 100 ML IV SCH ×2 (06:47→14:21)
[2020-07-18] MEDS: SUCRALFATE 1 GM/10 ML ORAL SUSP PO SCH ×4 (08:26→22:00)
[2020-07-18] MEDS: DexAMETHasone SOD PHOS 10MG/1ML VIAL INJ IV SCH (08:26)
[2020-07-18] MEDS: ASPirin 81 mg TAB PO SCH (08:26)
[2020-07-18] MEDS: FAMOTIDINE (10MG/ML) 2ML VL IV SCH (08:26)
[2020-07-18] MEDS: busPIRone HCL 10 MG TAB PO SCH ×2 (08:26→22:00)
[2020-07-18] MEDS: ZINC SULFATE 220mg CAP or TAB PO SCH (08:26)
[2020-07-18] MEDS: CHOLECALCIFEROL (VITD3) 2,000 UNIT CAP PO SCH (08:27)
[2020-07-18] MEDS: METOPROLOL SUCCINATE XL 50 MG TAB PO SCH (08:27)
[2020-07-18] MEDS: ASCORBIC ACID 1,000 MG TAB PO SCH (08:27)
[2020-07-18] MEDS: TOPIRAMATE 100 MG TAB PO SCH ×2 (08:27→22:00)
[2020-07-18] MEDS: ACETAMINOPHEN 650 mg PER 20.3 mL UD PO PRN (08:31)
[2020-07-18] MEDS: BUDESONIDE (INHALATION) 0.5 MG/2 ML NEB NEB SCH ×2 (09:34→22:00)
[2020-07-18 12:47] LABS: Albumin 1.6 g/dL (3.4-5.0); Calcium 7.4 mg/dL (8.5-10.1); Potassium 3.9 mmol/L (3.5-5.1)
[2020-07-18 12:49] LABS: Hematocrit 26.2 % (36.0-46.0); Hemoglobin 8.3 g/dL (12.2-16.2); Mean Corpuscular Hemoglobin 31.1 pg (28.0-32.0); Mean Corpuscular Hgb Conc. 31.8 g/dL (32.0-36.0); Platelet Count (auto) 232 10^3/uL (140-450); Red Blood Cells 2.67 10^6/uL (4.0-5.20); White Blood Cell 16.3 10^3/uL (4.4-10.8)
[2020-07-18 12:52] LABS: BUN/Creatinine Ratio 24.7; Bilirubin, Total 0.5 mg/dL (0.2-1.0)
[2020-07-18 13:05] LABS: Red Cell Distribution Width 20.4 % (11.8-14.3)
[2020-07-18 13:07] LABS: Basophils % (manual) 0 (0.0-2.0); Blast Cells 0; Promyelocytes % 0; Reactive Lymphocytes 0
[2020-07-18 13:52] LABS: Band Neutrophils % (manual) 4; Eosinophils % (manual) 1 (0-7); Lymphocytes % (manual) 13 (10.0-50.0); Metamyelocytes % 4; Monocytes % (manual) 1 (0-12); Myelocytes % 1
[2020-07-18] MEDS: SODIUM CHLORIDE 0.9% 1,000 ML IV SCH (14:17)
[2020-07-18] MEDS ORDERED: NITROGLYCERIN 0.4 MG SL TAB SL PRN (16:45)
[2020-07-18] MEDS ORDERED: MORPHINE SULF INJ 2 MG/ML SYRINGE 1ML IV PRN (16:45)
[2020-07-18] MEDS: ENOXAPARIN SOD 60 MG/0.6 ML SYRINGE SC SCH (17:21)
[2020-07-18] MEDS: CEFEPIME 1 GM in SODIUM CHL 0.9% 50 ML IV SCH (17:21)
[2020-07-18] MEDS: ATORVASTATIN 20 MG TAB PO SCH (22:00)
[2020-07-18 22:20] VITALS: BP 116/45
[2020-07-19] VITALS: BP 116/45
[2020-07-19] MEDS ORDERED: PRED20TA2 PO (02:56)
[2020-07-19] MEDS ORDERED: MEGE40TA4 PO (02:56)
[2020-07-19] MEDS ORDERED: FURO20TA3 PO (02:56)
[2020-07-19] MEDS ORDERED: CARB25TA23 PO (02:56)
[2020-07-19] MEDS: SUCRALFATE 1 GM/10 ML ORAL SUSP PO SCH ×4 (06:13→22:00)
[2020-07-19] MEDS: SODIUM CHLORIDE 0.9% 1,000 ML IV SCH (07:50)
[2020-07-19] MEDS: BUDESONIDE (INHALATION) 0.5 MG/2 ML NEB NEB SCH ×3 (07:59→22:00)
[2020-07-19] MEDS: ALBUTEROL SULF 2.5 MG/0.5ML(0.5%) NEB SOLN NEB PRN (07:59)
[2020-07-19 08:00] VITALS: BP 118/58
[2020-07-19 08:43] LABS: Albumin 1.7 g/dL (3.4-5.0); Calcium 8.2 mg/dL (8.5-10.1); Potassium 3.9 mmol/L (3.5-5.1)
[2020-07-19 08:49] LABS: BUN/Creatinine Ratio 29.3; Bilirubin, Total 0.5 mg/dL (0.2-1.0)
[2020-07-19 08:52] LABS: Red Blood Cells 2.29 10^6/uL (4.0-5.20); White Blood Cell 20.2 10^3/uL (4.4-10.8)
[2020-07-19 08:54] LABS: Hematocrit 22.6 % (36.0-46.0); Hemoglobin 7.2 g/dL (12.2-16.2); Mean Corpuscular Hemoglobin 31.5 pg (28.0-32.0); Mean Corpuscular Hgb Conc. 31.9 g/dL (32.0-36.0); Mean Corpuscular Volume 98.7 fL (80.0-100.0); Platelet Count (auto) 260 10^3/uL (140-450)
[2020-07-19 09:00] LABS: Red Cell Distribution Width 20.8 % (11.8-14.3)
[2020-07-19 09:01] LABS: Basophils % (manual) 0 (0.0-2.0); Blast Cells 0; Eosinophils % (manual) 0 (0-7); Promyelocytes % 0; Reactive Lymphocytes 0
[2020-07-19] MEDS: ASPirin 81 mg TAB PO SCH (09:48)
[2020-07-19] MEDS: ZINC SULFATE 220mg CAP or TAB PO SCH (09:49)
[2020-07-19] MEDS: busPIRone HCL 10 MG TAB PO SCH ×2 (09:49→22:00)
[2020-07-19] MEDS: TOPIRAMATE 100 MG TAB PO SCH ×2 (09:49→22:00)
[2020-07-19] MEDS: ASCORBIC ACID 1,000 MG TAB PO SCH (09:49)
[2020-07-19] MEDS: CHOLECALCIFEROL (VITD3) 2,000 UNIT CAP PO SCH (09:49)
[2020-07-19] MEDS: METOPROLOL SUCCINATE XL 50 MG TAB PO SCH (09:49)
[2020-07-19] MEDS: FAMOTIDINE (10MG/ML) 2ML VL IV SCH (09:54)
[2020-07-19] MEDS: DexAMETHasone SOD PHOS 10MG/1ML VIAL INJ IV SCH (09:54)
[2020-07-19] MEDS ORDERED: D5W/SOD CHL 0.45% 1,000 ML IV ONE (10:30)
[2020-07-19 12:31] LABS: Band Neutrophils % (manual) 7; Lymphocytes % (manual) 9 (10.0-50.0); Metamyelocytes % 2; Monocytes % (manual) 6 (0-12); Myelocytes % 3
[2020-07-19] MEDS ORDERED: DIGOXIN (250MCG/ML) 2 ML AMPULE IV ONE ×3 (14:00→16:45)
[2020-07-19 16:00] VITALS: BP 120/54
[2020-07-19] MEDS ORDERED: LORazepam 2MG/ML-1ML VIAL IV ONE (16:30)
[2020-07-19] MEDS: ENOXAPARIN SOD 60 MG/0.6 ML SYRINGE SC SCH (17:38)
[2020-07-19] MEDS: CEFEPIME 1 GM in SODIUM CHL 0.9% 50 ML IV SCH (17:40)
[2020-07-19] MEDS: ATORVASTATIN 20 MG TAB PO SCH (22:00)
[2020-07-20] VITALS (30 sets, daily range): BP systolic 83–146; BP diastolic 23–66
[2020-07-20] MEDS: SUCRALFATE 1 GM/10 ML ORAL SUSP PO SCH ×4 (06:27→22:00)
[2020-07-20 06:59] LABS: Basophils # (auto) 0 10 ^3/uL (0-0.2); Eosinophils # (auto) 0 10 ^3/uL (0-0.8)
[2020-07-20 07:02] LABS: Eosinophils % (auto) 0.1 % (0.0-7.0); Hematocrit 20.9 % (36.0-46.0); Lymphocytes # (auto) 1.4 10 ^3/uL (0.4-5.4); Lymphocytes % (auto) 6.8 % (10.0-50.0); Mean Corpuscular Hemoglobin 31.4 pg (28.0-32.0); Mean Corpuscular Hgb Conc. 30.4 g/dL (32.0-36.0); Mean Corpuscular Volume 103.2 fL (80.0-100.0); Monocytes # (auto) 0.6 10 ^3/uL (0-1.3); Neutrophils # (auto) 18.6 10 ^3/uL (1.6-8.6); Neutrophils % (auto) 90.1 % (37.0-80.0); Platelet Count (auto) 237 10^3/uL (140-450); Red Blood Cells 2.03 10^6/uL (4.0-5.20); White Blood Cell 20.7 10^3/uL (4.4-10.8)
[2020-07-20 07:08] LABS: Nucleated Red Blood Cells % 3.8 %
[2020-07-20 07:09] LABS: Hemoglobin 6.4 g/dL (12.2-16.2); Red Cell Distribution Width 20.5 % (11.8-14.3)
[2020-07-20 07:14] LABS: Albumin 1.7 g/dL (3.4-5.0); Calcium 7.2 mg/dL (8.5-10.1); Potassium 5.1 mmol/L (3.5-5.1)
[2020-07-20 07:16] LABS: BUN/Creatinine Ratio 31.1
[2020-07-20 07:19] LABS: Bilirubin, Total 0.6 mg/dL (0.2-1.0); Total Protein 4.8 g/dL (6.4-8.2)
[2020-07-20] MEDS: DIGOXIN (250MCG/ML) 2 ML AMPULE IV ONE ×2 (09:30→12:20)
[2020-07-20] MEDS: ZINC SULFATE 220mg CAP or TAB PO SCH (10:00)
[2020-07-20] MEDS: TOPIRAMATE 100 MG TAB PO SCH ×2 (10:00→22:00)
[2020-07-20] MEDS: ASCORBIC ACID 1,000 MG TAB PO SCH (10:00)
[2020-07-20] MEDS: busPIRone HCL 10 MG TAB PO SCH ×2 (10:00→22:00)
[2020-07-20] MEDS: DexAMETHasone SOD PHOS 10MG/1ML VIAL INJ IV SCH ×2 (10:00→12:19)
[2020-07-20] MEDS: CHOLECALCIFEROL (VITD3) 2,000 UNIT CAP PO SCH (10:00)
[2020-07-20] MEDS: FAMOTIDINE (10MG/ML) 2ML VL IV SCH ×2 (10:00→12:20)
[2020-07-20] MEDS: METOPROLOL SUCCINATE XL 50 MG TAB PO SCH (10:00)
[2020-07-20] MEDS: ASPirin 81 mg TAB PO SCH (10:00)
[2020-07-20] MEDS: BUDESONIDE (INHALATION) 0.5 MG/2 ML NEB NEB SCH ×2 (10:00→22:00)
[2020-07-20] MEDS ORDERED: SUCCINYLCHOLINE CHLORIDE 20 MG/ML 10ML VIAL IV ONE (12:39)
[2020-07-20] MEDS ORDERED: ETOMIDATE (2MG/ML) 20ML VIAL IV ONE (12:39)
[2020-07-20] MEDS ORDERED: SODIUM CHLORIDE 0.9% 250 ML IV ONE (13:30)
[2020-07-20] MEDS: NOREPINEPHRINE 8 MG/250ML KIT 250 ML IV SCH (15:01)
[2020-07-20] MEDS: MIDAZOLAM DRIP 50 mg/50mL 50 ML IV SCH (15:02)
[2020-07-20] MEDS: ACETAMINOPHEN 650 mg PER 20.3 mL UD PO PRN (16:21)
[2020-07-20] MEDS ORDERED: DEXTROSE (50%) 50ML SYRG IV PRN (16:30)
[2020-07-20] MEDS: ACCU-CHEK COMFORT CURVE STRIP VI SCH ×2 (17:30→22:00)
[2020-07-20] MEDS: SODIUM CHLORIDE 0.9% 1,000 ML IV SCH ×2 (18:00→22:00)
[2020-07-20] MEDS: InsuLIN REG 1unit/0.01ml Soln (100units/ml) SC SCH ×2 (18:00→22:00)
[2020-07-20] MEDS: CEFEPIME 1 GM in SODIUM CHL 0.9% 50 ML IV SCH (18:00)
[2020-07-20] MEDS: ENOXAPARIN SOD 60 MG/0.6 ML SYRINGE SC SCH (18:00)
[2020-07-20] MEDS: ALBUTEROL SULF 2.5 MG/0.5ML(0.5%) NEB SOLN NEB PRN (19:07)
[2020-07-20] MEDS: ATORVASTATIN 20 MG TAB PO SCH (22:00)
[2020-07-21] VITALS (73 sets, daily range): BP systolic 50–282; BP diastolic 20–129
[2020-07-21] MEDS ORDERED: NITROGLYCERIN 50MG/250ML 250 ML IV ONE (01:07)
[2020-07-21] MEDS: NITROGLYCERIN 50MG/250ML 250 ML IV SCH ×2 (01:15→12:36)
[2020-07-21] MEDS: SUCRALFATE 1 GM/10 ML ORAL SUSP PO SCH ×4 (07:00→22:00)
[2020-07-21] MEDS: SODIUM CHLORIDE 0.9% 1,000 ML IV SCH ×2 (07:00→14:00)
[2020-07-21] MEDS: ALBUTEROL SULF 2.5 MG/0.5ML(0.5%) NEB SOLN NEB PRN ×3 (07:20→19:50)
[2020-07-21] MEDS: BUDESONIDE (INHALATION) 0.5 MG/2 ML NEB NEB SCH ×2 (07:20→19:50)
[2020-07-21 07:52] LABS: Hematocrit 31.1 % (36.0-46.0); Hemoglobin 9.5 g/dL (12.2-16.2); Mean Corpuscular Hemoglobin 30.6 pg (28.0-32.0); Mean Corpuscular Hgb Conc. 30.5 g/dL (32.0-36.0); Mean Corpuscular Volume 100.6 fL (80.0-100.0); Platelet Count (auto) 205 10^3/uL (140-450); Red Blood Cells 3.09 10^6/uL (4.0-5.20); White Blood Cell 19.7 10^3/uL (4.4-10.8)
[2020-07-21 07:56] LABS: Basophils % (manual) 0 (0.0-2.0); Blast Cells 0; Metamyelocytes % 0; Promyelocytes % 0; Reactive Lymphocytes 0; Red Cell Distribution Width 22.7 % (11.8-14.3)
[2020-07-21 08:08] LABS: Potassium 5.4 mmol/L (3.5-5.1)
[2020-07-21 08:45] LABS: Albumin 1.7 g/dL (3.4-5.0); BUN/Creatinine Ratio 29.3; Calcium 7.7 mg/dL (8.5-10.1)
[2020-07-21 08:47] LABS: Bilirubin, Total 0.4 mg/dL (0.2-1.0); Total Protein 4.8 g/dL (6.4-8.2)
[2020-07-21] MEDS: DexAMETHasone SOD PHOS 10MG/1ML VIAL INJ IV SCH (09:59)
[2020-07-21] MEDS: FAMOTIDINE (10MG/ML) 2ML VL IV SCH (10:00)
[2020-07-21] MEDS: METOPROLOL SUCCINATE XL 50 MG TAB PO SCH (10:00)
[2020-07-21] MEDS: CHOLECALCIFEROL (VITD3) 2,000 UNIT CAP PO SCH (10:00)
[2020-07-21] MEDS: ZINC SULFATE 220mg CAP or TAB PO SCH (10:00)
[2020-07-21] MEDS: busPIRone HCL 10 MG TAB PO SCH ×2 (10:00→22:00)
[2020-07-21] MEDS: ASCORBIC ACID 1,000 MG TAB PO SCH (10:09)
[2020-07-21] MEDS: TOPIRAMATE 100 MG TAB PO SCH ×2 (10:09→22:00)
[2020-07-21] MEDS: InsuLIN REG 1unit/0.01ml Soln (100units/ml) SC SCH ×4 (10:15→22:00)
[2020-07-21] MEDS: ACCU-CHEK COMFORT CURVE STRIP VI SCH ×4 (10:20→22:00)
[2020-07-21 11:44] LABS: Band Neutrophils % (manual) 25; Eosinophils % (manual) 3 (0-7); Lymphocytes % (manual) 8 (10.0-50.0); Monocytes % (manual) 3 (0-12); Myelocytes % 2
[2020-07-21] MEDS: NOREPINEPHRINE 8 MG/250ML KIT 250 ML IV SCH (12:37)
[2020-07-21] MEDS: MIDAZOLAM DRIP 50 mg/50mL 50 ML IV SCH (13:22)
[2020-07-21] MEDS: CEFEPIME 1 GM in SODIUM CHL 0.9% 50 ML IV SCH (18:00)
[2020-07-21] MEDS: ENOXAPARIN SOD 60 MG/0.6 ML SYRINGE SC SCH (18:00)
[2020-07-21] MEDS: ATORVASTATIN 20 MG TAB PO SCH (22:00)
[2020-07-22] VITALS (85 sets, daily range): BP systolic 96–141; BP diastolic 44–81
[2020-07-22] MEDS: ACCU-CHEK COMFORT CURVE STRIP VI SCH ×4 (01:00→17:00)
[2020-07-22] MEDS: InsuLIN REG 1unit/0.01ml Soln (100units/ml) SC SCH ×4 (01:00→17:00)
[2020-07-22] MEDS: SODIUM CHLORIDE 0.9% 1,000 ML IV SCH ×4 (02:00→22:00)
[2020-07-22 04:32] LABS: Basophils # (auto) 0 10 ^3/uL (0-0.2); Eosinophils # (auto) 0 10 ^3/uL (0-0.8); Hemoglobin 8.5 g/dL (12.2-16.2); Monocytes # (auto) 0.2 10 ^3/uL (0-1.3)
[2020-07-22 04:34] LABS: Eosinophils % (auto) 0.3 % (0.0-7.0); Hematocrit 28.3 % (36.0-46.0); Lymphocytes # (auto) 0.5 10 ^3/uL (0.4-5.4); Lymphocytes % (auto) 3.5 % (10.0-50.0); Mean Corpuscular Hemoglobin 31.4 pg (28.0-32.0); Mean Corpuscular Volume 104.5 fL (80.0-100.0); Monocytes % (auto) 1.6 % (0.0-12.0); Neutrophils # (auto) 12.9 10 ^3/uL (1.6-8.6); Neutrophils % (auto) 94.6 % (37.0-80.0); Nucleated Red Blood Cells % 2.6 %; Platelet Count (auto) 153 10^3/uL (140-450); Red Blood Cells 2.71 10^6/uL (4.0-5.20); White Blood Cell 13.7 10^3/uL (4.4-10.8)
[2020-07-22 04:47] LABS: Albumin 1.4 g/dL (3.4-5.0); Calcium 8.1 mg/dL (8.5-10.1); Potassium 5.3 mmol/L (3.5-5.1)
[2020-07-22 04:50] LABS: BUN/Creatinine Ratio 31.1; Bilirubin, Total 0.6 mg/dL (0.2-1.0); Total Protein 4.8 g/dL (6.4-8.2)
[2020-07-22 05:13] LABS: Red Cell Distribution Width 23.5 % (11.8-14.3)
[2020-07-22] MEDS: SUCRALFATE 1 GM/10 ML ORAL SUSP PO SCH ×4 (07:00→22:00)
[2020-07-22] MEDS: BUDESONIDE (INHALATION) 0.5 MG/2 ML NEB NEB SCH ×2 (07:00→22:54)
[2020-07-22] MEDS: ALBUTEROL SULF 2.5 MG/0.5ML(0.5%) NEB SOLN NEB PRN ×2 (07:00→22:54)
[2020-07-22] MEDS: METOPROLOL SUCCINATE XL 50 MG TAB PO SCH (08:27)
[2020-07-22] MEDS: DexAMETHasone SOD PHOS 10MG/1ML VIAL INJ IV SCH (10:15)
[2020-07-22] MEDS ORDERED: PATIENTS OWN MEDICATION (EPOGEN 10,000 UNITS) SUBCUT ONE (10:15)
[2020-07-22] MEDS: busPIRone HCL 10 MG TAB PO SCH ×2 (10:16→22:00)
[2020-07-22] MEDS: CHOLECALCIFEROL (VITD3) 2,000 UNIT CAP PO SCH (10:16)
[2020-07-22] MEDS: TOPIRAMATE 100 MG TAB PO SCH ×2 (10:16→22:00)
[2020-07-22] MEDS: ASCORBIC ACID 1,000 MG TAB PO SCH (10:16)
[2020-07-22] MEDS: FAMOTIDINE (10MG/ML) 2ML VL IV SCH (10:16)
[2020-07-22] MEDS: ZINC SULFATE 220mg CAP or TAB PO SCH (10:16)
[2020-07-22] MEDS ORDERED: EPOETIN ALFA 10,000 UNIT/1 ML VIAL SC ONE (11:00)
[2020-07-22] MEDS ORDERED: IRON SUCROSE COMPLEX 200 MG in SODIUM CHL 0.9% 100 ML IV SCH (12:00)
[2020-07-22] MEDS: MIDAZOLAM DRIP 50 mg/50mL 50 ML IV SCH (12:24)
[2020-07-22] MEDS: NOREPINEPHRINE 8 MG/250ML KIT 250 ML IV SCH (13:45)
[2020-07-22] MEDS: SODIUM FERR GLUC 62.5MG/5ML 125 MG in SODIUM CHL 0.9% 100 ML IV SCH (13:53)
[2020-07-22] MEDS: CEFEPIME 1 GM in SODIUM CHL 0.9% 50 ML IV SCH (18:15)
[2020-07-22] MEDS: ENOXAPARIN SOD 60 MG/0.6 ML SYRINGE SC SCH (18:17)
[2020-07-22 21:41] LABS: Basophils # (auto) 0 10 ^3/uL (0-0.2); Basophils % (auto) 0.1 % (0.0-2.0); Eosinophils # (auto) 0 10 ^3/uL (0-0.8); Eosinophils % (auto) 0.3 % (0.0-7.0); Hematocrit 28.9 % (36.0-46.0); Hemoglobin 9.2 g/dL (12.2-16.2); Lymphocytes # (auto) 0.8 10 ^3/uL (0.4-5.4); Lymphocytes % (auto) 7.4 % (10.0-50.0); Mean Corpuscular Hemoglobin 31.3 pg (28.0-32.0); Mean Corpuscular Hgb Conc. 31.9 g/dL (32.0-36.0); Mean Corpuscular Volume 98.3 fL (80.0-100.0); Monocytes # (auto) 0.2 10 ^3/uL (0-1.3); Monocytes % (auto) 1.5 % (0.0-12.0); Neutrophils # (auto) 9.3 10 ^3/uL (1.6-8.6); Neutrophils % (auto) 90.7 % (37.0-80.0); Nucleated Red Blood Cells % 2.8 %; Platelet Count (auto) 150 10^3/uL (140-450); Red Blood Cells 2.94 10^6/uL (4.0-5.20); White Blood Cell 10.3 10^3/uL (4.4-10.8)
[2020-07-22 21:43] LABS: Red Cell Distribution Width 21.9 % (11.8-14.3)
[2020-07-22] MEDS: ATORVASTATIN 20 MG TAB PO SCH (22:00)
[2020-07-23] VITALS (69 sets, daily range): BP systolic 82–144; BP diastolic 22–107
[2020-07-23 04:53] LABS: Mean Corpuscular Volume 98.8 fL (80.0-100.0)
[2020-07-23 04:55] LABS: Hematocrit 24.9 % (36.0-46.0); Mean Corpuscular Hemoglobin 31.9 pg (28.0-32.0); Mean Corpuscular Hgb Conc. 32.3 g/dL (32.0-36.0); Platelet Count (auto) 128 10^3/uL (140-450); Red Blood Cells 2.52 10^6/uL (4.0-5.20); White Blood Cell 9.1 10^3/uL (4.4-10.8)
[2020-07-23 05:06] LABS: Albumin 1.3 g/dL (3.4-5.0)
[2020-07-23 05:10] LABS: BUN/Creatinine Ratio 32.6; Bilirubin, Total 0.4 mg/dL (0.2-1.0); Total Protein 4.9 g/dL (6.4-8.2)
[2020-07-23 05:16] LABS: % Iron Saturation 91.7 % (15-50)
[2020-07-23 05:19] LABS: Red Cell Distribution Width 21.4 % (11.8-14.3)
[2020-07-23 05:21] LABS: Basophils % (manual) 0 (0.0-2.0); Blast Cells 0; Eosinophils % (manual) 0 (0-7); Myelocytes % 0; Promyelocytes % 0; Reactive Lymphocytes 0
[2020-07-23 06:02] LABS: Band Neutrophils % (manual) 35; Lymphocytes % (manual) 6 (10.0-50.0); Metamyelocytes % 3; Monocytes % (manual) 1 (0-12)
[2020-07-23] MEDS: BUDESONIDE (INHALATION) 0.5 MG/2 ML NEB NEB SCH ×2 (06:36→20:49)
[2020-07-23] MEDS: ALBUTEROL SULF 2.5 MG/0.5ML(0.5%) NEB SOLN NEB PRN ×2 (06:36→20:49)
[2020-07-23] MEDS: SUCRALFATE 1 GM/10 ML ORAL SUSP PO SCH ×4 (07:00→22:00)
[2020-07-23] MEDS: InsuLIN REG 1unit/0.01ml Soln (100units/ml) SC SCH ×4 (07:29→22:00)
[2020-07-23] MEDS: ACCU-CHEK COMFORT CURVE STRIP VI SCH ×4 (07:29→22:00)
[2020-07-23] MEDS: MIDAZOLAM DRIP 50 mg/50mL 50 ML IV SCH ×2 (07:57→12:14)
[2020-07-23] MEDS: ZINC SULFATE 220mg CAP or TAB PO SCH (09:31)
[2020-07-23] MEDS: busPIRone HCL 10 MG TAB PO SCH ×2 (09:31→22:00)
[2020-07-23] MEDS: DexAMETHasone SOD PHOS 10MG/1ML VIAL INJ IV SCH (09:31)
[2020-07-23] MEDS: FAMOTIDINE (10MG/ML) 2ML VL IV SCH (09:31)
[2020-07-23] MEDS: METOPROLOL SUCCINATE XL 50 MG TAB PO SCH (09:32)
[2020-07-23] MEDS: ASCORBIC ACID 1,000 MG TAB PO SCH (09:33)
[2020-07-23] MEDS: CHOLECALCIFEROL (VITD3) 2,000 UNIT CAP PO SCH (09:34)
[2020-07-23 10:23] LABS: INR 1.02 (0.9-1.15)
[2020-07-23] MEDS: TOPIRAMATE 100 MG TAB PO SCH ×2 (11:33→22:00)
[2020-07-23] MEDS: SODIUM FERR GLUC 62.5MG/5ML 125 MG in SODIUM CHL 0.9% 100 ML IV SCH (12:10)
[2020-07-23] MEDS ORDERED: ACETAMINOPHEN 650 mg PER 20.3 mL UD GT ONE (14:30)
[2020-07-23] MEDS ORDERED: diphenhdrAMINE HCL 50 MG/1 ML VL IV ONE ×2 (14:30→14:45)
[2020-07-23] MEDS ORDERED: diphenhdrAMINE HCL 50 MG/1 ML VL IM ONE (14:30)
[2020-07-23] MEDS: SODIUM BICARBONATE 50ML VIAL 50 ML in D5W/SOD CHL 0.45% 1,000 ML IV SCH ×2 (16:49→22:54)
[2020-07-23] MEDS: CEFEPIME 1 GM in SODIUM CHL 0.9% 50 ML IV SCH (18:41)
[2020-07-23] MEDS: ATORVASTATIN 20 MG TAB PO SCH (22:00)
[2020-07-23] MEDS: SODIUM CHLOR 0.9% PF (SALINE LOCK) 10ML VIAL/SYR IV SCH (22:00)
[2020-07-24] VITALS (78 sets, daily range): BP systolic 95–162; BP diastolic 30–83
[2020-07-24] MEDS: SUCRALFATE 1 GM/10 ML ORAL SUSP PO SCH ×4 (06:43→23:11)
[2020-07-24] MEDS: ACCU-CHEK COMFORT CURVE STRIP VI SCH ×4 (06:43→23:11)
[2020-07-24] MEDS: InsuLIN REG 1unit/0.01ml Soln (100units/ml) SC SCH ×4 (06:43→23:34)
[2020-07-24 06:53] LABS: Albumin 1.2 g/dL (3.4-5.0); Potassium 4.9 mmol/L (3.5-5.1)
[2020-07-24 06:56] LABS: BUN/Creatinine Ratio 32.4; Bilirubin, Total 0.5 mg/dL (0.2-1.0); Total Protein 4.8 g/dL (6.4-8.2)
[2020-07-24 06:59] LABS: Mean Corpuscular Hemoglobin 30.5 pg (28.0-32.0); Mean Corpuscular Hgb Conc. 31.4 g/dL (32.0-36.0); Mean Corpuscular Volume 97.2 fL (80.0-100.0); Platelet Count (auto) 100 10^3/uL (140-450); Red Blood Cells 3.61 10^6/uL (4.0-5.20); Red Cell Distribution Width 19.1 % (11.8-14.3); White Blood Cell 14.9 10^3/uL (4.4-10.8)
[2020-07-24 07:24] LABS: Basophils % (manual) 0 (0.0-2.0); Blast Cells 0; Eosinophils % (manual) 0 (0-7); Promyelocytes % 0; Reactive Lymphocytes 0
[2020-07-24] MEDS: BUDESONIDE (INHALATION) 0.5 MG/2 ML NEB NEB SCH ×2 (09:30→22:25)
[2020-07-24] MEDS: METOPROLOL SUCCINATE XL 50 MG TAB PO SCH (10:00)
[2020-07-24] MEDS: SODIUM CHLOR 0.9% PF (SALINE LOCK) 10ML VIAL/SYR IV SCH ×2 (10:08→22:00)
[2020-07-24] MEDS: ZINC SULFATE 220mg CAP or TAB PO SCH (10:08)
[2020-07-24] MEDS: DexAMETHasone SOD PHOS 10MG/1ML VIAL INJ IV SCH (10:08)
[2020-07-24] MEDS: FAMOTIDINE (10MG/ML) 2ML VL IV SCH (10:08)
[2020-07-24] MEDS: SODIUM BICARBONATE 50ML VIAL 50 ML in D5W/SOD CHL 0.45% 1,000 ML IV SCH ×2 (10:08→18:53)
[2020-07-24] MEDS: TOPIRAMATE 100 MG TAB PO SCH ×2 (10:09→23:11)
[2020-07-24] MEDS: ASCORBIC ACID 1,000 MG TAB PO SCH (10:09)
[2020-07-24] MEDS: busPIRone HCL 10 MG TAB PO SCH ×2 (10:09→22:00)
[2020-07-24] MEDS: CHOLECALCIFEROL (VITD3) 2,000 UNIT CAP PO SCH (10:10)
[2020-07-24 10:23] LABS: Band Neutrophils % (manual) 35; Lymphocytes % (manual) 2 (10.0-50.0); Metamyelocytes % 8; Monocytes % (manual) 3 (0-12); Myelocytes % 2
[2020-07-24] MEDS: SODIUM FERR GLUC 62.5MG/5ML 125 MG in SODIUM CHL 0.9% 100 ML IV SCH (11:58)
[2020-07-24] MEDS: CEFEPIME 1 GM in SODIUM CHL 0.9% 50 ML IV SCH (18:55)
[2020-07-24] MEDS: ALBUTEROL SULF 2.5 MG/0.5ML(0.5%) NEB SOLN NEB PRN (22:25)
[2020-07-24] MEDS: NITROGLYCERIN 50MG/250ML 250 ML IV SCH (22:56)
[2020-07-24] MEDS: NOREPINEPHRINE 8 MG/250ML KIT 250 ML IV SCH (22:56)
[2020-07-24] MEDS: VASOPRESSIN 20 UNIT/ML IM SCH (23:11)
[2020-07-24] MEDS: ATORVASTATIN 20 MG TAB PO SCH (23:11)
[2020-07-25] VITALS (93 sets, daily range): BP systolic 86–149; BP diastolic 31–86
[2020-07-25] MEDS: NITROGLYCERIN 50MG/250ML 250 ML IV SCH (02:06)
[2020-07-25] MEDS: SODIUM BICARBONATE 50ML VIAL 50 ML in D5W/SOD CHL 0.45% 1,000 ML IV SCH ×4 (02:07→20:00)
[2020-07-25] MEDS: MIDAZOLAM DRIP 50 mg/50mL 50 ML IV SCH ×2 (02:08→11:58)
[2020-07-25] MEDS: ACCU-CHEK COMFORT CURVE STRIP VI SCH ×4 (05:20→22:06)
[2020-07-25 05:41] LABS: Mean Corpuscular Volume 94.3 fL (80.0-100.0)
[2020-07-25 05:48] LABS: Hematocrit 29.8 % (36.0-46.0); Hemoglobin 9.7 g/dL (12.2-16.2); Mean Corpuscular Hemoglobin 30.8 pg (28.0-32.0); Mean Corpuscular Hgb Conc. 32.7 g/dL (32.0-36.0); Platelet Count (auto) 57 10^3/uL (140-450); Red Blood Cells 3.15 10^6/uL (4.0-5.20); Red Cell Distribution Width 18.4 % (11.8-14.3); White Blood Cell 13.8 10^3/uL (4.4-10.8)
[2020-07-25 05:59] LABS: BUN/Creatinine Ratio 29.7; Calcium 7.5 mg/dL (8.5-10.1); Potassium 4.4 mmol/L (3.5-5.1)
[2020-07-25] MEDS: SUCRALFATE 1 GM/10 ML ORAL SUSP PO SCH ×4 (06:06→22:11)
[2020-07-25] MEDS: InsuLIN REG 1unit/0.01ml Soln (100units/ml) SC SCH ×4 (06:07→21:54)
[2020-07-25] MEDS: BUDESONIDE (INHALATION) 0.5 MG/2 ML NEB NEB SCH ×2 (06:33→18:55)
[2020-07-25 06:35] LABS: Basophils % (manual) 0 (0.0-2.0); Blast Cells 0; Eosinophils % (manual) 0 (0-7); Promyelocytes % 0; Reactive Lymphocytes 0
[2020-07-25 07:31] LABS: Band Neutrophils % (manual) 33; Lymphocytes % (manual) 4 (10.0-50.0); Metamyelocytes % 6; Monocytes % (manual) 1 (0-12); Myelocytes % 2
[2020-07-25] MEDS: METOPROLOL SUCCINATE XL 50 MG TAB PO SCH (07:48)
[2020-07-25] MEDS: TOPIRAMATE 100 MG TAB PO SCH ×2 (07:49→22:11)
[2020-07-25] MEDS: FAMOTIDINE (10MG/ML) 2ML VL IV SCH (09:08)
[2020-07-25] MEDS: DexAMETHasone SOD PHOS 10MG/1ML VIAL INJ IV SCH (09:08)
[2020-07-25] MEDS: VASOPRESSIN 20 UNIT/ML IM SCH (09:08)
[2020-07-25] MEDS: busPIRone HCL 10 MG TAB PO SCH ×2 (09:08→22:10)
[2020-07-25] MEDS: ZINC SULFATE 220mg CAP or TAB PO SCH (09:08)
[2020-07-25] MEDS: SODIUM CHLOR 0.9% PF (SALINE LOCK) 10ML VIAL/SYR IV SCH ×2 (09:08→22:07)
[2020-07-25] MEDS: CHOLECALCIFEROL (VITD3) 2,000 UNIT CAP PO SCH (09:09)
[2020-07-25] MEDS: ASCORBIC ACID 1,000 MG TAB PO SCH (09:09)
[2020-07-25] MEDS: NOREPINEPHRINE 8 MG/250ML KIT 250 ML IV SCH (11:58)
[2020-07-25] MEDS ORDERED: VASOPRESSIN 20 UNIT/ML IM SCH (14:15)
[2020-07-25] MEDS: CEFEPIME 1 GM in SODIUM CHL 0.9% 50 ML IV SCH (17:04)
[2020-07-25] MEDS: ALBUTEROL SULF 2.5 MG/0.5ML(0.5%) NEB SOLN NEB PRN (18:55)
[2020-07-25] MEDS: ATORVASTATIN 20 MG TAB PO SCH (22:11)
[2020-07-26] VITALS (94 sets, daily range): BP systolic 72–136; BP diastolic 11–70
[2020-07-26] MEDS: NITROGLYCERIN 50MG/250ML 250 ML IV SCH (01:15)
[2020-07-26] MEDS: MIDAZOLAM DRIP 50 mg/50mL 50 ML IV SCH ×2 (03:00→12:42)
[2020-07-26 04:32] LABS: Hematocrit 27.8 % (36.0-46.0); Mean Corpuscular Hemoglobin 30.3 pg (28.0-32.0); Mean Corpuscular Hgb Conc. 32.5 g/dL (32.0-36.0); Mean Corpuscular Volume 93.3 fL (80.0-100.0); Platelet Count (auto) 42 10^3/uL (140-450); Red Blood Cells 2.98 10^6/uL (4.0-5.20); Red Cell Distribution Width 18.6 % (11.8-14.3); White Blood Cell 16.4 10^3/uL (4.4-10.8)
[2020-07-26 04:34] LABS: Calcium 7.2 mg/dL (8.5-10.1); Potassium 4.4 mmol/L (3.5-5.1)
[2020-07-26 04:37] LABS: BUN/Creatinine Ratio 29.8
[2020-07-26 04:39] LABS: Basophils % (manual) 0 (0.0-2.0); Blast Cells 0; Myelocytes % 0; Promyelocytes % 0; Reactive Lymphocytes 0
[2020-07-26 05:20] LABS: Band Neutrophils % (manual) 60; Eosinophils % (manual) 2 (0-7); Lymphocytes % (manual) 9 (10.0-50.0); Metamyelocytes % 2; Monocytes % (manual) 1 (0-12)
[2020-07-26] MEDS: SODIUM BICARBONATE 50ML VIAL 50 ML in D5W/SOD CHL 0.45% 1,000 ML IV SCH ×2 (06:00→17:30)
[2020-07-26] MEDS: ACCU-CHEK COMFORT CURVE STRIP VI SCH ×4 (06:10→22:00)
[2020-07-26] MEDS: InsuLIN REG 1unit/0.01ml Soln (100units/ml) SC SCH ×4 (06:27→23:23)
[2020-07-26] MEDS: SUCRALFATE 1 GM/10 ML ORAL SUSP PO SCH ×4 (06:30→23:22)
[2020-07-26] MEDS: BUDESONIDE (INHALATION) 0.5 MG/2 ML NEB NEB SCH ×2 (07:13→19:17)
[2020-07-26] MEDS: ALBUTEROL SULF 2.5 MG/0.5ML(0.5%) NEB SOLN NEB PRN ×2 (07:13→19:18)
[2020-07-26] MEDS: METOPROLOL SUCCINATE XL 50 MG TAB PO SCH (09:44)
[2020-07-26] MEDS: TOPIRAMATE 100 MG TAB PO SCH (10:00)
[2020-07-26] MEDS: VASOPRESSIN 20 UNIT/ML IM SCH (10:25)
[2020-07-26] MEDS: DexAMETHasone SOD PHOS 10MG/1ML VIAL INJ IV SCH (10:26)
[2020-07-26] MEDS: SODIUM CHLOR 0.9% PF (SALINE LOCK) 10ML VIAL/SYR IV SCH ×2 (10:26→22:00)
[2020-07-26] MEDS: FAMOTIDINE (10MG/ML) 2ML VL IV SCH (10:26)
[2020-07-26] MEDS: busPIRone HCL 10 MG TAB PO SCH ×2 (10:27→23:22)
[2020-07-26] MEDS: ZINC SULFATE 220mg CAP or TAB PO SCH (10:27)
[2020-07-26] MEDS: ASCORBIC ACID 1,000 MG TAB PO SCH (10:28)
[2020-07-26] MEDS: CHOLECALCIFEROL (VITD3) 2,000 UNIT CAP PO SCH (10:28)
[2020-07-26] MEDS: NOREPINEPHRINE 8 MG/250ML KIT 250 ML IV SCH (12:42)
[2020-07-26] MEDS: CEFEPIME 1 GM in SODIUM CHL 0.9% 50 ML IV SCH (17:53)
[2020-07-26] MEDS: ATORVASTATIN 20 MG TAB PO SCH (23:21)
[2020-07-27] VITALS (58 sets, daily range): BP systolic 69–125; BP diastolic 18–63
[2020-07-27] MEDS: NITROGLYCERIN 50MG/250ML 250 ML IV SCH (01:15)
[2020-07-27] MEDS: TOPIRAMATE 100 MG TAB PO SCH ×2 (04:20→08:43)
[2020-07-27] MEDS: SODIUM BICARBONATE 50ML VIAL 50 ML in D5W/SOD CHL 0.45% 1,000 ML IV SCH ×3 (04:21→19:11)
[2020-07-27] MEDS: ACCU-CHEK COMFORT CURVE STRIP VI SCH ×4 (06:56→22:02)
[2020-07-27] MEDS: InsuLIN REG 1unit/0.01ml Soln (100units/ml) SC SCH ×4 (06:57→21:55)
[2020-07-27] MEDS: SUCRALFATE 1 GM/10 ML ORAL SUSP PO SCH ×4 (07:44→21:53)
[2020-07-27] MEDS: FAMOTIDINE (10MG/ML) 2ML VL IV SCH (08:40)
[2020-07-27] MEDS: SODIUM CHLOR 0.9% PF (SALINE LOCK) 10ML VIAL/SYR IV SCH ×2 (08:42→22:01)
[2020-07-27] MEDS: ZINC SULFATE 220mg CAP or TAB PO SCH (08:42)
[2020-07-27] MEDS: DexAMETHasone SOD PHOS 10MG/1ML VIAL INJ IV SCH (08:42)
[2020-07-27] MEDS: busPIRone HCL 10 MG TAB PO SCH (08:42)
[2020-07-27] MEDS: VASOPRESSIN 20 UNIT/ML IM SCH (08:42)
[2020-07-27] MEDS: METOPROLOL SUCCINATE XL 50 MG TAB PO SCH (08:43)
[2020-07-27] MEDS: ASCORBIC ACID 1,000 MG TAB PO SCH (08:43)
[2020-07-27] MEDS: CHOLECALCIFEROL (VITD3) 2,000 UNIT CAP PO SCH (08:43)
[2020-07-27] MEDS: BUDESONIDE (INHALATION) 0.5 MG/2 ML NEB NEB SCH ×2 (10:08→22:41)
[2020-07-27] MEDS: NOREPINEPHRINE 8 MG/250ML KIT 250 ML IV SCH ×2 (11:25→16:40)
[2020-07-27] MEDS ORDERED: DIGOXIN (250MCG/ML) 2 ML AMPULE IV ONE (11:45)
[2020-07-27] MEDS: MIDAZOLAM DRIP 50 mg/50mL 50 ML IV SCH ×4 (12:00→19:30)
[2020-07-27] MEDS: DexAMETHasone SOD PHOS 4 MG/1ML SDV INJ IV SCH (15:15)
[2020-07-27] MEDS: CEFEPIME 1 GM in SODIUM CHL 0.9% 50 ML IV SCH (18:16)
[2020-07-27 18:33] LABS: Basophils # (auto) 0 10 ^3/uL (0-0.2); Basophils % (auto) 0.1 % (0.0-2.0); Eosinophils # (auto) 0 10 ^3/uL (0-0.8); Eosinophils % (auto) 0.3 % (0.0-7.0); Hemoglobin 8.6 g/dL (12.2-16.2); Monocytes # (auto) 0.1 10 ^3/uL (0-1.3); Monocytes % (auto) 0.5 % (0.0-12.0); Platelet Count (auto) 30 10^3/uL (140-450)
[2020-07-27 18:34] LABS: Hematocrit 27.4 % (36.0-46.0); Lymphocytes # (auto) 0.1 10 ^3/uL (0.4-5.4); Mean Corpuscular Hemoglobin 30.7 pg (28.0-32.0); Mean Corpuscular Hgb Conc. 31.5 g/dL (32.0-36.0); Mean Corpuscular Volume 97.7 fL (80.0-100.0); Neutrophils # (auto) 11.7 10 ^3/uL (1.6-8.6); Neutrophils % (auto) 98.1 % (37.0-80.0); Red Blood Cells 2.81 10^6/uL (4.0-5.20); Red Cell Distribution Width 18.9 % (11.8-14.3); White Blood Cell 11.9 10^3/uL (4.4-10.8)
[2020-07-27 18:47] LABS: Calcium 7.3 mg/dL (8.5-10.1); Potassium 4.9 mmol/L (3.5-5.1)
[2020-07-27 18:54] LABS: Nucleated Red Blood Cells % 12.7 %
[2020-07-27 18:56] LABS: BUN/Creatinine Ratio 26.2; CRP High Sensitivity 14.7 mg/dL (< 0.3)
[2020-07-27] MEDS: ACETYLCYSTEINE 20%(200MG/ML) SOL 4ML NEB SCH (22:00)
[2020-07-28] VITALS (23 sets, daily range): BP systolic 0–120; BP diastolic 0–56
[2020-07-28] MEDS: NOREPINEPHRINE 8 MG/250ML KIT 250 ML IV SCH ×3 (02:15→20:38)
[2020-07-28] MEDS: SODIUM BICARBONATE 50ML VIAL 50 ML in D5W/SOD CHL 0.45% 1,000 ML IV SCH ×3 (03:42→20:38)
[2020-07-28] MEDS: SUCRALFATE 1 GM/10 ML ORAL SUSP PO SCH ×3 (07:00→16:47)
[2020-07-28] MEDS: InsuLIN REG 1unit/0.01ml Soln (100units/ml) SC SCH ×3 (07:00→18:26)
[2020-07-28] MEDS: ACCU-CHEK COMFORT CURVE STRIP VI SCH ×3 (07:00→17:00)
[2020-07-28] MEDS: NITROGLYCERIN 50MG/250ML 250 ML IV SCH (08:02)
[2020-07-28] MEDS: BUDESONIDE (INHALATION) 0.5 MG/2 ML NEB NEB SCH ×2 (08:15→19:00)
[2020-07-28] MEDS: ACETYLCYSTEINE 20%(200MG/ML) SOL 4ML NEB SCH ×3 (08:15→19:00)
[2020-07-28] MEDS: MIDAZOLAM DRIP 50 mg/50mL 50 ML IV SCH ×2 (08:30)
[2020-07-28] MEDS: FAMOTIDINE (10MG/ML) 2ML VL IV SCH (09:58)
[2020-07-28] MEDS: DexAMETHasone SOD PHOS 4 MG/1ML SDV INJ IV SCH (09:58)
[2020-07-28] MEDS: ZINC SULFATE 220mg CAP or TAB PO SCH (09:58)
[2020-07-28] MEDS: SODIUM CHLOR 0.9% PF (SALINE LOCK) 10ML VIAL/SYR IV SCH (09:58)
[2020-07-28] MEDS: CHOLECALCIFEROL (VITD3) 2,000 UNIT CAP PO SCH (09:59)
[2020-07-28] MEDS: METOPROLOL SUCCINATE XL 50 MG TAB PO SCH (09:59)
[2020-07-28] MEDS: ASCORBIC ACID 1,000 MG TAB PO SCH (09:59)
[2020-07-28] MEDS ORDERED: SODIUM BICARBONATE 8.4 % INJ 50ML VIAL IV ONE (12:43)
[2020-07-28] MEDS: ALBUTEROL SULF 2.5 MG/0.5ML(0.5%) NEB SOLN NEB PRN ×2 (13:59→19:00)
[2020-07-28] MEDS: CEFEPIME 1 GM in SODIUM CHL 0.9% 50 ML IV SCH (18:31)
== END 2020-07-28 21:55 | DRG 870 ==
LOC: EDUNIT# 13:37 → EDBD 13:37 → ER 13:37 → TELE 13:38 → TELE-EAST 07-18 22:46 → ICU WEST 07-20 13:24
PROVIDERS: ADMIT Hospitalist; ATTEND Internal Medicine Cardiovascular Disease
PROC: 05HA33Z Insertion of Infusion Device into Left Brachial Vein, Percutaneous Approach (ICD-10-PCS; 2020-07-16)
PROC: B54NZZA Ultrasonography of Left Upper Extremity Veins, Guidance (ICD-10-PCS; 2020-07-16)
PROC: 5A09357 Assistance with Respiratory Ventilation, Less than 24 Consecutive Hours, Continuous Positive Airway Pressure (ICD-10-PCS; 2020-07-19)
PROC: 5A1955Z Respiratory Ventilation, Greater than 96 Consecutive Hours (ICD-10-PCS; 2020-07-20)
PROC: 0BH17EZ Insertion of Endotracheal Airway into Trachea, Via Natural or Artificial Opening (ICD-10-PCS; 2020-07-20)
PROC: 30233N1 Transfusion of Nonautologous Red Blood Cells into Peripheral Vein, Percutaneous Approach (ICD-10-PCS; 2020-07-20)
PROC: 02HV33Z Insertion of Infusion Device into Superior Vena Cava, Percutaneous Approach (ICD-10-PCS; principal; 2020-07-23)
DX: A41.9 Sepsis, unspecified organism (principal); U07.1 COVID-19; G93.41 Metabolic encephalopathy; E43 Unspecified severe protein-calorie malnutrition; R53.2 Functional quadriplegia; J12.82 Pneumonia due to coronavirus disease 2019; J80 Acute respiratory distress syndrome; N39.0 Urinary tract infection, site not specified; N17.9 Acute kidney failure, unspecified; E87.0 Hyperosmolality and hypernatremia; K92.2 Gastrointestinal hemorrhage, unspecified; J44.0 Chronic obstructive pulmonary disease with (acute) lower respiratory infection; E87.2 Acidosis; Z66 Do not resuscitate; I48.91 Unspecified atrial fibrillation; R62.7 Adult failure to thrive; F03.90 Unspecified dementia, unspecified severity, without behavioral disturbance, psychotic disturbance, mood disturbance, and anxiety; F41.9 Anxiety disorder, unspecified; I25.5 Ischemic cardiomyopathy; K21.9 Gastro-esophageal reflux disease without esophagitis; M19.90 Unspecified osteoarthritis, unspecified site; G62.9 Polyneuropathy, unspecified; F39 Unspecified mood [affective] disorder; E86.1 Hypovolemia; D64.9 Anemia, unspecified; I50.9 Heart failure, unspecified; G40.909 Epilepsy, unspecified, not intractable, without status epilepticus; E11.9 Type 2 diabetes mellitus without complications; E78.5 Hyperlipidemia, unspecified; I11.0 Hypertensive heart disease with heart failure; I25.10 Atherosclerotic heart disease of native coronary artery without angina pectoris; Z98.61 Coronary angioplasty status; Z86.19 Personal history of other infectious and parasitic diseases; Z68.20 Body mass index [BMI] 20.0-20.9, adult
CPT/HCPCS: 36415; 36569; 36600; 70450; 71045; 80048; 80053; 80061; 81001; 82728; 82805; 82962; 83036; 83540; 83550; 83605; 83615; 83735; 83880; 84443; 84484; 85007; 85025; 85027; 85045; 85379; 85610; 85730; 86141; 86850; 86900; 86901; 86920; 87040; 87070; 87077; 87081; 87205; 87426; 87804; 93005; 94002; 94003; 94640; 94660; 99291; G0378; J0330; J0696; J0885; J1100; J1815; J2250; J3480; J3490; J7060